=== PATIENT | female | born 1945 | race Caucasian/White ===

== ENCOUNTER → 2018-09-08 12:57 | Outpatient (CLI) | payer OTHER, SELFPAY | PROVIDERS: PCP Nurse Practitioner Family; Visit Provider Nurse Practitioner Family | DX: M81.0 Age-related osteoporosis without current pathological fracture (principal); Z78.0 Asymptomatic menopausal state; E07.9 Disorder of thyroid, unspecified; Z90.722 Acquired absence of ovaries, bilateral; Z82.62 Family history of osteoporosis | CPT/HCPCS: 77080 ==

== ENCOUNTER → 2018-10-29 08:03 | Outpatient (CLI) | payer OTHER, SELFPAY ==
[2018-10-29 09:25] LABS: BUN Creatinine Ratio 21.3 (6-22); Blood Urea Nitrogen 17 mg/dL (7-17); Calcium 9.3 mg/dL (8.4-10.2); Carbon Dioxide 32 mmol/L (22-32); Chloride 104 mmol/L (98-107); Estimated Glomerular Filt Rate > 60.0 mL/min (>60); Glucose 104 mg/dL (80-110); HEMOLYSIS < 15 (0-50); Potassium 4.7 mmol/L (3.4-5.1); Sodium 141 mmol/L (137-145)
== END ==
PROVIDERS: PCP Nurse Practitioner Family; Visit Provider Podiatrist
DX: Z01.818 Encounter for other preprocedural examination (principal); Z01.812 Encounter for preprocedural laboratory examination
CPT/HCPCS: 36415; 80048; 93005

== ENCOUNTER 2018-11-12 12:06 | Day surgery (SDC) | payer OTHER, SELFPAY ==
[2018-10-29 10:52] VITALS: BMI 23.8
[2018-11-12] VITALS (7 sets, daily range): BP systolic 144–155; BP diastolic 67–74; PULSE 52–61; RESP 8–18; TEMP 36.2–36.7; O2SAT 94–98; BMI 23.2
[2018-11-12] MEDS: CEFAZOLIN 2 GM/100 ML FROZ.PIGGY IV (14:10)
--- NOTE | 2018-11-12 14:16 | SUR.OPER ---
Paper copy of History & Physical from office in patient's chart. Surgeon confirmed no change since visit on 11/03/18 and will write interval note as such.
--- NOTE | 2018-11-12 14:17 | SUR.OPER ---
Supine on padded OR bed, head on pillow, arms secured on padded arm boards at <90 degrees abduction, legs uncrossed, safety belt at thigh, tape over blanket over lower legs.
[2018-11-12] MEDS: LIDOCAINE 2% W/EPI INJ 20 ML INJ (14:25)
[2018-11-12] MEDS: LIDOCAINE 2% INJ SDV 5 ML INJ (14:26)
[2018-11-12] MEDS: BUPIVACAINE 0.5% (PF) VIAL 30 ML INJ (14:27)
--- NOTE | 2018-11-12 15:18 | P.OP_ITS ---
Operative Date/Time/Diagnoses Date of procedure: 11/12/18 Time of procedure: 15:12 Pre-op diagnosis: Painful hallux ridgidus, right foot Post-op diagnosis: same Procedure & Clinicians Procedure: 1st MTPJ implant arthroplasty with silicone flexible implant and titanium grommets, Right foot Same procedure as scheduled: Yes Indications: Painful end-stage arthritis, hallux ridgidus, right foot Surgeon: Amol Wilkinson Click Yes if Unassisted: Yes Anesthesia Type: General and Local Operative Notes Closure Type: primary Specimen(s): none sent Prosthetic devices, grafts, tissues, transplants, or devices: Integra Flexible Great Toe (FGT) hinged silicone implant with titanium grommets Estimated Blood Loss (mL): 5 Blood products transfused: none Tourniquet time (min): 0 Procedure in detail: Indications: This patient has been dealing with painful and-stage arthritis involving her right foot. She has elected to proceed with 1st MTP joint implant arthroplasty. Operation: Patient was taken from the day surgery area back to the OR via gurney, and placed on the OR table in the supine position. She had received IV antibiotic prophylaxis. General anesthesia was induced by the anesthesiologist followed by local anesthetic blockade of the foot was 50 50 lidocaine. A calf tourniquet was applied, but not utilized throughout the case. The right foot was then prepped and draped in the usual sterile fashion from toes to knee. Procedure: 1St MTP joint implant arthroplasty with silicone flexible implant and titanium grommets, right foot attention was directed toward the dorsum of the right foot. A longitudinal in cision measuring 7 cm in length was placed over the 1st MTP joint, just medial to the EHL tendon. Sharp and blunt dissection were utilized through the subcutaneous tissue layer, taking care to retract all vital structures and cauterized as necessary for adequate hemostasis. Proliferative the bony exostosis was removed off the dorsal surface of the 1st met head and proximal phalanx base. Utilizing the included Integra instrumentation, osteotomy guide was inserted into the top of the joint and bone cuts began at the distal 1st metatarsal and proximal base of the hallux. The guide was removed, the bone cuts completed protecting the plantar structures. The adjacent bone canals at the distal 1st metatarsal and proximal phalanx base were then completed per protocol, using the small broach. The trial Sizer was placed and a size 20 implants looked to be an excellent fit. The wound was irrigated with copious antibiotic solution. A size 20 implant was opened. Titanium grommets were colby holley followed by the implantation of the silicone implant. The joint was put through range of motion in the implant found to rest nicely with no significant pistoning. Good resection allowed for adequate range of motion. Another antibiotic irrigation was followed by layered closure of the capsule, subcu, and skin with 3 0 Vicryl, 4 Vicryl respectively. Steri-Strips were placed, a postop injection 0.5% Marcaine given and then a light gauze compression bandage applied. She will be allowed full weight-bearing on the foot protected in a postop shoe. Will be seen for 1st postop visit next week in the [place] office. Condition: stable Disposition: PACU Plan for aftercare: Home with sister. FU in [place] office next week.
--- NOTE | 2018-11-12 15:34 | PM.PREOP ---
Pre-operative Note Interval Note History & Physical reviewed/Exam performed by Physician: Yes Changes to H&P: No
== END 2018-11-12 15:45 | disposition home or self-care (01) ==
LOC: OR 12:09
PROVIDERS: PCP Nurse Practitioner Family; Visit Provider Podiatrist
PROC: (CPT 26535; principal; 2018-11-12 13:00)
DX: M20.21 Hallux rigidus, right foot (principal); M25.571 Pain in right ankle and joints of right foot; M77.9 Enthesopathy, unspecified; I10 Essential (primary) hypertension; R26.2 Difficulty in walking, not elsewhere classified
CPT/HCPCS: 28291; J0690; J1100; J2405; J2704; J3010

== ENCOUNTER 2019-07-18 12:00 | Day surgery (SDC) | payer OTHER, SELFPAY ==
--- NOTE | 2019-07-18 08:09 | PM.OP.ENDO ---
Operative Date/Time/Diagnoses Date of procedure: 07/18/19 Time of procedure: 13:56 Pre-op diagnosis: 1. Fecal occult blood test positive 2. Screening for colon cancer Post-op diagnosis: other ( 1. Normal colonoscopy, 2. AVM, cecum, 3. Diverticulosis, sigmoid, minor) Procedure & Clinicians Study performed: Colonoscopy Same procedure as scheduled: Yes Indications: 1. Fecal occult blood test positive 2. Screening for colon cancer Surgeon: Bessy Bruce Procedure Notes SCOAP/Timeout: 1:56 p.m. Procedure in detail: ENDOSCOPIST: Bessy Bruce MD Sedation RN: Antonio Esqueda RN Sedation start time: 1:58 p.m. Sedation end time: 2:19 p.m. PROCEDURE: Colonoscopy INDICATIONS: 1. Fecal occult blood test positive 2. Screening for colon cancer MEDICATION: Levsin 0.125 mg sublingual, incremental doses of Versed and fentanyl until appropriate level sedation achieved. ASA CLASS: 2 CECAL WITHDRAWAL TIME: 9 minutes COMPLICATIONS: None. EXTENT OF PROCEDURE: Cecum. QUALITY OF PREP: Good with portions of liquid stool. PROCEDURE: Prior to insertion of the colonoscope, a digital rectal examination was accomplished with circumferential palpation of the distal rectal mucosa without significant findings being noted. The high-definition colonoscope was passed into the rectum in the usual fashion and advanced over to the cecum without difficulty. The ileocecal valve, appendiceal stoma, and medial wall all could be inspected and a small AVM was seen, otherwise, no abnormalities were appreciated. ASCENDING COLON: As the colonoscope was withdrawn, care was taken to expose and inspect the haustral folds and no abnormalities were seen. HEPATIC FLEXURE: Normal no polyps, diverticula or other abnormalities. TRANSVERSE COLON: Normal no polyps, diverticula or other abnormalities. DESCENDING COLON: Normal no polyps, diverticula or other abnormalities. SIGMOID COLON: Minor diverticulosis, otherwise, normal, no polyps, or other abnormalities. RECTUM: Normal. J maneuver was produced. There was no significant perianal disease. The J maneuver was broken. The remainder of the rectum was inspected and there was no external hemorrhoid disease. The scope was withdrawn. IMPRESSION: 1. Normal colonoscopy 2. Diverticulosis, sigmoid, minor 3. AVM, cecum, likely source of positive FIT test PLAN: 1. May consider repeat colonoscopy in 10 years if life expectancy greater than 10 years. Alternatively, can discontinue colon cancer screenings at age 82. The possibility of a missed lesion including a malignancy has been discussed with the patient previously. Potential alarm symptoms have been discussed and should be reported immediately. Scope withdrawal time: 9 Sedation minutes: 21 Findings: other findings Specimen(s): none sent Complications: none Impression: As above. Post-procedure Recommendations: Colonscopy in 10 years Follow up: as needed Disposition: PACU
--- NOTE | 2019-07-18 08:11 | PM.HP.1 ---
History of Present Illness History of Present Illness Date Patient Seen: 07/18/19 Time Patient Seen: 13:54 Chief complaint: [id number] Narrative: 74 Years Old Female comes in today for consideration of a diagnostic colonoscopy. FIT positive on 04/14/19. Last colonoscopy on 11/01/2003, normal. There have been no lower GI symptoms suggesting disease such as change in bowel habits, bleeding, abdominal pain or anemia. There's been no family history of colon cancer or colon polyps. Overall health issues have been stable, including no major cardiac events for at least 6 weeks. Current Medications (verified): 1) Cranberry Extract 200 Mg Oral Capsule (Cranberry (Vacc Oxycoccus)) .... use as directed 2) Atenolol 50 Mg Oral Tablet (Atenolol) .... Take 1 tablet once a day for blood pressure control. 3) Levothyroxine Sodium 50 Mcg Oral Tablet (Levothyroxine Sodium) .... Take 1/2 tablet by mouth once a day for thyroid replacement. 4) Acyclovir 400 Mg Oral Tablet (Acyclovir) .... take 2 tablets at onset of symptoms then one tablet three times daily as needed for herpes outbreak 5) Vitamin D 2000 Unit Oral Capsule (Cholecalciferol) .... Take one by mouth every day 6) Vitamin B-12 1000 Mcg Oral Tablet (Cyanocobalamin) .... Take one by mouth every day Allergies (verified): 1) Sulfa (Critical) 2) Lisinopril (Lisinopril) (Critical) 3) Losartan Potassium (Losartan Potassium) (Critical) 4) Vicodin (Moderate) 5) Hydrochlorothiazide (Moderate) 6) Metoprolol Succinate (Mild) Past Medical History: Hyperlipidemia; 2017 Osteoporosis; 2014 IBS Murmur Rosacea, Seborrhea, and Perioral dermatitis Chronic Pain, affecting the neck, shoulders, and low back Hypertension Hypothyroidism Prediabetes Herpes labialis Past Surgical History: Right foot, podiatry; 10/2018 Bilateral Tubal Ligation: 1974 Procedures:Colonoscopy ( 11/02 normal ) Total Hysterec with BSO (1988) Bilateral carpal tunnel surgery(1980) Fallopian tube cyst removal(1980) Family History: Reviewed history from 01/10/2014 and no changes required: Father: age 78- Heart Disease, Hypertension Mother: age 92. Positive for Cerebrovascular Accident ( mother -- at 75 ). 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 Household Members: son Education: 16 years LIfe Changes (2013): Retired 05/31/13, mother (06/19/13) Patient History Medical History (Updated 11/01/18 @ 07:45 by Cindi Hidalgo RN) Angioedema (Acute 04/15/17) Chronic foot pain (Acute) Chronic neck and back pain (Acute) Dysuria-frequency syndrome (Acute) (Acute) HLD (hyperlipidemia) (Acute) HTN (hypertension) (Acute) Hypothyroid (Acute) IBS (irritable bowel syndrome) (Acute) Murmur (Acute) Osteoporosis (Acute) Pre-diabetes (Acute) Rosacea (Acute) Surgical History (Updated 11/01/18 @ 07:45 by Cindi Hidalgo RN) H/O total hysterectomy with bilateral salpingo-oophorectomy (BSO) (Acute ~1988) History of bilateral tubal ligation (Acute ~1974) History of colonoscopy (Acute ~10/2003) Meds Home Medications and Allergies Home Medications Medication Instructions Recorded Confirmed Type acyclovir 2 tab PO PRN PRN #0 04/13/17 07/18/19 History levothyroxine [Synthroid] 12.5 mcg PO QAM #0 04/13/17 07/18/19 History atenolol 50 mg PO DAILY 11/01/18 07/18/19 History epinephrine [EpiPen 2-Damon] 0.3 mg SQ X1 PRN 11/01/18 11/01/18 History Allergies Allergy/AdvReac Type Severity Reaction Status Date / Time lisinopril Allergy Severe Angioedema Verified 11/01/18 07:37 losartan Allergy Severe angioedema Verified 11/12/18 12:52 Sulfa (Sulfonamide Allergy Severe Itchy Verified 11/12/18 12:52 Antibiotics) [SULFA (SULFONAMIDE ANTIBIOTICS)] hydrochlorothiazide Allergy Intermediate angeoedema Verified 11/12/18 12:52 metoprolol AdvReac Intermediate Dizziness Verified 11/12/18 12:52 Review of Systems Review of Systems Narrative: General: Denies fever, chills, sweats, loss of appetite, fatigue, weakness, ill feeling, weight change, waking-up tired, fatigued/sleepy during day, snoring, and problem getting to or staying asleep. Eyes: Denies blurring, double vision, irritation/itching, redness, discharge, vision loss, eye pain, and light intolerance. ENT: Denies earache, ear discharge, ringing ears, decreased hearing, nasal congestion, nasal discharge, postnasal drip, nosebleeds, sore throat, hoarseness, itching nose/eyes, and sneezing. CV: Denies chest discomfort, palpitations, lightheadedness, passing out, SOB with exertion, SOB lying flat, PND-sudden nocturnal shortness of breath, and ankle edema. Resp: Denies cough, wheeze, SOB at rest, sputum, coughing up blood, and painful breathing. GI: Denies nausea, vomiting, diarrhea, constipation, change in bowel habits, abdominal pain, dark black stools, blood in stools, gas/bloating, indigestion/heartburn, reflux, loss of appetite, swallowing problems, painful swallowing, and jaundice. : Denies painful urination, blood in urine, frequency, nocturia, incontinence, urgency, hesitancy, vaginal discharge, amenorrhea, abnormally heavy periods, abnormal vaginal bleeding, pelvic pain, painful intercourse, less interested in sex, and genital sores. MS: Denies neck pain, upper back pain, lower back pain, joint pain, joint swelling, joint stiffness, muscle cramps, muscle weakness, pain radiating down leg, restless legs, and leg pain with exertion. Derm: Complains of itching; denies rash, dryness, skin lesions, changing lesions, and non-healing sores. Neuro: Denies weakness of a limb, numbness/tingling, seizure, tremor, dizziness, transient blindness, balance problems, frequent falls, frequent headaches, severe headaches, difficulty speaking, difficulty swallowing, clumsiness, confusion, and memory loss. Psych: Denies sadness/hopelessness, feeling overwhelmed, lack of roxanne/pleasure, anxiety/excessive worry, excessive sleep, inadequate sleep, change in appetite, poor concentration, suicidal ideation, hallucinations, paranoia, and phobia. Endo: Denies cold intolerance, heat intolerance, excessive thirst, excessive hunger, excessive urination, and unintentional weight change. Heme: Denies abnormal bruising, bleeding problems, bleeding gums, frequent nosebleeds, and enlarged lymph nodes. Allergy: Denies hives, allergic rash, allergy symptoms, seasonal allergies, food intolerance, animal intolerance, and frequent infections. Breast: Denies left breast lump, right breast lump, breast pain, breast tenderness, erythema, nipple discharge, bloody nipple discharge, abnormal mammogram, breast enlargement, and currently . Exam Narrative Exam Narrative: General: Alert and oriented, appearing stated age and in no acute distress. Head: Head normocephalic/atraumatic. Neck: Neck soft and supple, no lymphadenopathy. Lungs: Clear to auscultation bilaterally, no wheezes, rhonchi or rales. Heart: Normal S1 and S2 with regular rate and rhythm, no audible murmurs, rubs or gallops. Abdomen: Soft, non-tender, non-distended, no organomegaly. Possitive bowel sounds. Psych: Alert and oriented x 3. Assessment & Plan Assessment & Plan narrative: Problem # 1: Fecal occult blood test positive 1. Colonoscopy The nature and character of the procedure as well as anticipated results were discussed. The possibility of not completing the procedure was also discussed. Possible complications including aspiration pneumonia, bleeding, perforation and reaction to medications either for sedation or preparation and missed lesions were discussed. Questions were answered and proceeding to the colonoscopy was elected. Informed consent signed. I sincerely appreciate the referral allowing me to participate in this patient's care. Please contact me with any questions or concerns. Problem # 2: Screening for colon cancer 1. Please see #1
[2019-07-18 12:28] VITALS: BP 105/85; PULSE 59; RESP 16; TEMP 36.4; O2SAT 100; BMI 22.5
[2019-07-18] MEDS: HYOSCYAMINE 0.125 MG TABLET PO (12:40)
[2019-07-18] MEDS: SODIUM CHLORIDE 0.9% 1,000 ML 200 ML IV (12:40)
[2019-07-18] MEDS: fentaNYL 250 MCG/5 ML INJ IV (13:54)
[2019-07-18] MEDS: MIDAZOLAM 5 MG/ML VIAL 1 MG IV (13:55)
[2019-07-18 14:26] VITALS: BP 141/70; PULSE 74; RESP 15; TEMP 36.6; O2SAT 98
[2019-07-18 14:31] VITALS: BP 148/73; PULSE 76; RESP 18; O2SAT 98
[2019-07-18 14:35] VITALS: BP 160/74; PULSE 67; RESP 12; TEMP 36.6; O2SAT 99
[2019-07-18 14:39] VITALS: BP 159/77; PULSE 62; RESP 14; O2SAT 99
[2019-07-18 14:47] VITALS: BP 162/75; PULSE 65; RESP 12; O2SAT 98
--- NOTE | 2019-07-18 15:21 | SUR.PHASEII ---
1555 Brought to Phase II by Wendie, states that patient is stable and ready to go. Pt alert and oriented, call light within reach, states she'd like to go. IV dc'd, clothes given.
== END 2019-07-18 15:07 | disposition home or self-care (01) ==
PROVIDERS: PCP Nurse Practitioner Family; Referring Provider Nurse Practitioner Family; Visit Provider Student in an Organized Health Care Education/Training Program
PROC: 0DJD8ZZ Inspection of Lower Intestinal Tract, Via Natural or Artificial Opening Endoscopic (ICD-10-PCS; CPT 45378; principal; 2019-07-18 14:00)
DX: R19.5 Other fecal abnormalities (principal); K57.30 Diverticulosis of large intestine without perforation or abscess without bleeding; Q27.33 Arteriovenous malformation of digestive system vessel
CPT/HCPCS: 45378; J2250; J3010

== ENCOUNTER → 2020-04-27 14:56 | Outpatient (CLI) | payer OTHER, SELFPAY ==
--- NOTE | 2020-04-27 14:58 | DI.ECHO.S_ITS ---
[facility] +---------+ [facility] +---------+ : : [address] : : : : [id number] : : : : Phone: [phone] Echocardiogram Report + + :Name: PROSPER SEE Study Date: 04/27/2020 Height: 60 in : :[facility] Weight: 121 lb : : Gender: Female BSA: 1.5 m2 : :: 1945 Age: 75 yrs BP: 148/76 mmHg: :Reason For Study: Murmur : :Ordering Physician: : :Mine Baird Performed By: Manjula Sprague : + + Interpretation Summary The patient was in sinus bradycardia with heart rates between 44-57 bpm during the exam. The patient had frequent PVCs during the exam. Intermittent bigeminy rhythm. The left ventricle is normal in size. The ejection fraction is estimated to be 60-65%. The right ventricle is normal in size and function. There appears to be prolapse of P2 scallop of posterior mitral leaflet. There is mild to moderate mitral regurgitation. The mitral regurgitant jet is eccentrically directed. There is mild tricuspid regurgitation. The right ventricular systolic pressure is estimated to be at least 37 mmHg based on an estimated right atrial pressure of 3 mm Hg. Procedure: A two-dimensional transthoracic echocardiogram with color flow and Doppler was performed. The study quality was technically adequate. There is no prior echocardiogram noted for this patient. The patient was in sinus bradycardia with heart rates between 44-57 bpm during the exam. Intermittent bigeminy rhythm. The patient had frequent PVCs during the exam. Left Ventricle: The left ventricle is normal in size. Left ventricular wall thickness is mildly increased. There is no thrombus. The ejection fraction is estimated to be 60-65%. There are no focal wall motion abnormalities. MV E/A: 0.78 Med Peak E' Jose: 4.9 cm/sec E/E' med: 16.2. Right Ventricle: The right ventricle is normal in size and function. Atria: The left atrium is moderately dilated. Borderline right atrial enlargement. There is no Doppler evidence for an interatrial shunt. Mitral Valve: There is prolapse of the posterior mitral valve leaflet(s). There appears to be prolapse of P2 scallop of posterior mitral leaflet. There is mild to moderate mitral regurgitation. The mitral regurgitant jet is eccentrically directed. Aortic Valve: The aortic valve is normal in structure and function. No aortic regurgitation is present. Tricuspid Valve: The tricuspid valve is normal. There is mild tricuspid regurgitation. The right ventricular systolic pressure is estimated to be at least 37 mmHg based on an estimated right atrial pressure of 3 mm Hg. Pulmonic Valve: The pulmonic valve is not well seen, but is grossly normal. There is mild pulmonic regurgitation. Great Vessels: The aortic root is normal size. The ascending aorta is at the upper limits of normal in size. The aortic arch is normal in size. The IVC is of normal diameter and collapses greater than 50% with a sniff. This suggests a low right atrial pressure of 3 mm Hg. Pericardium/ Pleura There is no pericardial effusion. There is no pleural effusion. MMode/2D Measurements & Calculations LVIDd: 4.0 cm LVOT diam: 1.8 cm LVIDs: 2.1 cm Ao root diam: 2.9 cm FS: 46.3 % asc Aorta Diam: 3.4 cm EPSS: 0.15 cm Ao Arch Diam (Prox Trans): 2.3 cm IVSd: 1.1 cm LVPWd: 0.98 cm LV saravia. diameter/BSA (cm/m^2): 2.6 LV sys. diameter/BSA (cm/m^2): 1.4 LA A2 area: 20.7 cm2 RA long axis: 4.7 cm LA A4 area: 21.4 cm2 RA area: 15.2 cm2 LA length (vol): 5.6 cm RA vol: 41.6 ml LA vol: 67.5 ml RA : 27.6 ml/m2 LA vol index: 44.8 ml/m2 IVC diam: 1.5 cm RVD1 (basal): 3.3 cm RVD2 (mid): 2.6 cm TAPSE: 2.9 cm Doppler Measurements & Calculations Ao V2 max: 164.7 cm/sec LVOT Max Jose: 103.4 cm/sec Ao V2 mean: 113.4 cm/sec LV V1 max P.3 mmHg Ao max P.8 mmHg LV V1 VTI: 26.4 cm Ao mean P.7 mmHg GLENNY(I,D): 1.6 cm2 Ao V2 VTI: 40.9 cm GLENNY(V,D): 1.5 cm2 sev ratio: 0.65 GLENNY indexed to BSA (cm^2/m^2): 1.0 MV E max jose: 80.1 cm/sec TR max jose: 289.6 cm/sec MV A max jose: 103.2 cm/sec TR max P.5 mmHg MV E/A: 0.78 PA V2 max: 82.5 cm/sec Med Peak E' Jose: 4.9 cm/sec PA V2 mean: 59.4 cm/sec E/E' med: 16.2 PA mean P.6 mmHg Lat Peak E' Jose: 6.4 cm/sec PA Accel Time: 0.12 sec E/E' lat: 12.5 E/e' average: 14.4 MV dec time: 0.28 sec MV P1/2t: 82.7 msec MV P1/2t max jose: 80.6 cm/sec SV(LVOT): 64.5 ml MVA(P1/2t): 2.7 cm2 Reading Physician:05:26 PM
== END ==
PROVIDERS: PCP Family Medicine; Referring Provider Family Medicine; Visit Provider Family Medicine
DX: I08.1 Rheumatic disorders of both mitral and tricuspid valves (principal); R01.1 Cardiac murmur, unspecified; I49.3 Ventricular premature depolarization
CPT/HCPCS: 93306

== ENCOUNTER → 2020-05-26 14:19 | Outpatient (CLI) | payer OTHER, SELFPAY ==
--- NOTE | 2020-05-26 14:21 | DI.MG.S_ITS ---
BILATERAL DIGITAL SCREENING MAMMOGRAM 3D/2D WITH CAD: 05/26/2020 CLINICAL: Routine screening. Family history of breast cancer. Comparison is made to exams dated: 08/03/2017 mammogram, 07/14/2016 mammogram, and 02/19/2015 mammogram - [facility]. The tissue of both breasts is heterogeneously dense. This may lower the sensitivity of mammography. Current study was also evaluated with a Computer Aided Detection (CAD) system. No significant masses, calcifications, or other findings are seen in either breast. There has been no significant interval change. IMPRESSION: NEGATIVE There is no mammographic evidence of malignancy. A 1 year screening mammogram is recommended. This exam was interpreted at Station ID: [id number]. NOTE: For mammograms, a report in lay terms will be sent to the patient. Approximately 15% of breast malignancies will not be visualized mammographically. In the management of a palpable breast mass, a negative mammogram must not discourage biopsy of a clinically suspicious lesion. Electronically Signed By: Amandeep parada/danelle:05/28/2020 14:23:03 letter sent: Normal Exam ACR BI-RADS Category 1: Negative [id number]
== END ==
PROVIDERS: PCP Family Medicine; Referring Provider Family Medicine; Visit Provider Family Medicine
DX: Z12.31 Encounter for screening mammogram for malignant neoplasm of breast (principal); Z80.3 Family history of malignant neoplasm of breast
CPT/HCPCS: 77063; 77067

== ENCOUNTER → 2020-06-28 13:23 | Outpatient (CLI) | payer OTHER, SELFPAY ==
--- NOTE | 2020-07-21 11:36 | PM.CARDMON.1 ---
Awning Installer Report Referral & Results Date Patient Seen: 06/28/20 Requesting provider: Mine Baird Indication: Bradycardia Duration of monitoring (days): 7 Diary information: There are no patient diary entries or patient triggered events to review Data: Minimum heart rate identified was 46 beats per minute at 04:54 on 07/04/2020 Maximum sinus heart rate was 117 beats per minute at 09:27 on 07/03/2020 Maximum overall heart rate was 167 beats per minute at 09:41 on 07/04/2020 during a 4 beat run of SVT Less than 1% of identified beats were supraventricular ectopic in origin Approximately 2.5% of identified beats were ventricular ectopic in origin which would rate these as occasional PVCs including a 1 minutes 12nd run of ventricular bigeminy There were 7 runs of SVT the fastest being a 4 beat run listed above and the longest lasting 12.6 seconds at a rate of 119 beats per minute which would suggest more atrial tachycardia than true SVT Overall patient was not overly bradycardic with ultimate minimum heart rate as above Impression: No notable bradycardia noticed on this study Patient with occasional PVCs including minimal runs of ventricular bigeminy Patient with rare short duration runs of SVT/atrial tachycardia Clinical correlation suggested
== END ==
PROVIDERS: PCP Family Medicine; Referring Provider Family Medicine; Visit Provider Family Medicine
DX: R00.1 Bradycardia, unspecified (principal)
CPT/HCPCS: 93242; 93244

== ENCOUNTER → 2020-07-12 13:33 | Outpatient (CLI) | payer OTHER, SELFPAY ==
--- NOTE | 2020-07-12 13:34 | DI.RAD.S_ITS ---
PROCEDURE: XR DEXA AXIAL SKELETON INDICATIONS: Age-related osteoporosis COMPARISON: [facility], CR, XR DEXA AXIAL SKELETON, 09/08/2018, 13:18. FINDINGS: This blank DEXA report has been sent in error by the PACS system. The correct and complete report will be forthcoming in 1-2 days. Thank you for your patience and understanding. Dictated by: Ginger Maldonado MD, PhD on 07/12/2020 at 17:21 Approved by: Ginger Maldonado MD, PhD on 07/12/2020 at 17:21
== END ==
PROVIDERS: PCP Family Medicine; Referring Provider Family Medicine; Visit Provider Family Medicine
DX: M81.0 Age-related osteoporosis without current pathological fracture (principal); Z78.0 Asymptomatic menopausal state; E07.9 Disorder of thyroid, unspecified; Z90.722 Acquired absence of ovaries, bilateral
CPT/HCPCS: 77080

== ENCOUNTER 2020-11-06 06:15 | Emergency (ER) | payer OTHER, SELFPAY ==
[2020-11-06] VITALS (10 sets, daily range): BP systolic 110–187; BP diastolic 56–96; PULSE 60–75; RESP 12–26; TEMP 37.1; O2SAT 93–98; BMI 23.2
--- NOTE | 2020-11-06 06:26 | ED_ITS ---
HPI - Abdominal Pain <Asha Garcia, DO - Last Filed: 11/07/20 00:19> General Chief Complaint: Abdominal Pain Stated Complaint: N/V Time Seen by Provider: 11/06/20 06:17 Source: patient and EMS Mode of arrival: EMS Limitations: no limitations History of Present Illness HPI narrative: This is a 75-year-old female comes emergency department with complaint of abdominal pain that started last night. Patient states she has a history of irritable bowel syndrome. She states she usually does not episodes this severe. She states she had chills and sweats intermittently overnight. She had continuous abdominal pain but denies any radiation to her back. She denies any chest pain or pressure. She denies any shortness of breath. She states she had frequent nausea and vomiting overnight. She denies any hematemesis. Patient states she had a bowel movement yesterday which she describes soft. She denies any melena or hematochezia. She denies any dysuria, urgency frequency or difficulty with urination. She states that her abdomen feels distended and bloated. She states that this is typical in terms of having abdominal pain, cramping and the bloating but the nausea and vomiting is not as common. Patient states she does have history of hypertension and takes metoprolol and hydrochlorothiazide as well as levothyroxine and history dyslipidemia. Patient's that she has had a bilateral hysterectomy with BSO. Carpal tunnel surgery and prior foot surgery. Patient EMR notes that she did have a colonoscopy 07/21/2019 which showed AVM at cecum and diverticulosis. With otherwise normal colonoscopy. Patient received Zofran from EMS states she took activated charcoal at home. Related Data Home Medications Medication Instructions Recorded Confirmed acyclovir 2 tab PO PRN PRN #0 04/13/17 07/18/19 levothyroxine [Synthroid] 12.5 mcg PO QAM #0 04/13/17 07/18/19 atenolol 50 mg PO DAILY 11/01/18 07/18/19 epinephrine [EpiPen 2-Damon] 0.3 mg SQ X1 PRN 11/01/18 11/01/18 Previous Rx's Medication Instructions Recorded ondansetron 4 mg PO Q6H PRN #14 tab 11/06/20 Allergies Allergy/AdvReac Type Severity Reaction Status Date / Time lisinopril Allergy Severe Angioedema Verified 11/01/18 07:37 losartan Allergy Severe angioedema Verified 11/12/18 12:52 Sulfa (Sulfonamide Allergy Severe Itchy Verified 11/12/18 12:52 Antibiotics) [SULFA (SULFONAMIDE ANTIBIOTICS)] hydrochlorothiazide Allergy Intermediate angeoedema Verified 11/12/18 12:52 metoprolol AdvReac Intermediate Dizziness Verified 11/12/18 12:52 Review of Systems <Asha Garcia DO - Last Filed: 11/07/20 00:19> Review of Systems ROS Unobtainable: All systems reviewed & are unremarkable except as noted in HPI and below Patient History <Asha Garcia DO - Last Filed: 11/07/20 00:19> Medical History Angioedema (04/15/17) Chronic foot pain Chronic neck and back pain Dysuria-frequency syndrome HLD (hyperlipidemia) HTN (hypertension) Hypothyroid IBS (irritable bowel syndrome) Murmur Osteoporosis Pre-diabetes Rosacea Surgical History H/O total hysterectomy with bilateral salpingo-oophorectomy (BSO) (~1988) History of bilateral tubal ligation (~1974) History of colonoscopy (~10/2003) Social History household members: children Smoking Status: Never smoker alcohol intake: current Smoking Status: Never smoker alcohol intake frequency: a few times a month Substance Use Type: does not use Exam <Asha Garcia DO - Last Filed: 11/07/20 00:19> Narrative Exam Narrative: GENERAL: Alert and oriented x three, elderly female in moderate distress. Patient does appear uncomfortable. HEENT: Head normocephalic, atraumatic, EOMI, pupils reactive, face symmetric, moist mucous membranes NECK: Supple, full range of motion CARDIOVASCULAR: Regular rate and rhythm without murmurs, rubs or gallops. RESPIRATORY: Breath sounds equal bilaterally, no wheezes rales or rhonchi. ABDOMEN: Soft, nontender on exam. Hyperactive bowel sounds all 4 quadrants. No guarding or rebound, rigidity, no mass, nondistended. : No CVA tenderness EXTREMITIES: Normal range of motion, no clubbing or edema. Neurovascularly intact NEUROLOGICAL: Cranial nerves II through XII grossly intact. Moving all extremities SKIN: Warm, dry, no petechiae, no rashes or lesions. Initial Vital Signs Initial Vital Signs: Vital Signs Temperature 98.7 F 11/06/20 06:25 Pulse Rate 75 11/06/20 06:25 Respiratory Rate 19 11/06/20 06:25 Blood Pressure 187/81 H 11/06/20 06:25 Pulse Oximetry 98 11/06/20 06:25 <Kendall Reynoso DO - Last Filed: 11/06/20 09:34> Initial Vital Signs Initial Vital Signs: Vital Signs Temperature 98.7 F 11/06/20 06:25 Pulse Rate 75 11/06/20 06:25 Respiratory Rate 19 11/06/20 06:25 Blood Pressure 187/81 H 11/06/20 06:25 Pulse Oximetry 98 11/06/20 06:25 Course <Asha Garcia, DO - Last Filed: 11/07/20 00:19> Orders Ordered: Discontinued Medications Sodium Chloride (Normal Saline 0.9%) 1,000 mls @ 150 mls/hr IV CONT KAIT Last Infusion: 11/06/20 09:27 Dose: 0 mls/hr Documented by: JUAN A.JSHAFF Admin: 11/06/20 06:43 Dose: 150 mls/hr Documented by: JOSEPH Morphine Sulfate (Morphine 4 Mg/Ml Inj) 4 mg IV NOW ONE Stop: 11/06/20 06:26 Last Admin: 11/06/20 06:41 Dose: 4 mg Documented by: JOSEPH Ondansetron HCl (Ondansetron 4 Mg/2 Ml Inj) 4 mg IV Q4HR [facility] Vital Signs Vital signs: Vital Signs - 8 hr 11/06/20 06:25 11/06/20 06:45 11/06/20 07:00 Temperature 98.7 F Pulse Rate 75 67 60 Respiratory Rate 19 21 15 Blood Pressure 187/81 H 110/56 L Pulse Oximetry 98 96 96 <Kendall Reynoso DO - Last Filed: 11/06/20 09:34> Orders Ordered: Discontinued Medications Sodium Chloride (Normal Saline 0.9%) 1,000 mls @ 150 mls/hr IV CONT KAIT Last Infusion: 11/06/20 09:27 Dose: 0 mls/hr Documented by: [email or web address] Admin: 11/06/20 06:43 Dose: 150 mls/hr Documented by: JOSEPH Morphine Sulfate (Morphine 4 Mg/Ml Inj) 4 mg IV NOW ONE Stop: 11/06/20 06:26 Last Admin: 11/06/20 06:41 Dose: 4 mg Documented by: JOSEPH Ondansetron HCl (Ondansetron 4 Mg/2 Ml Inj) 4 mg IV Q4HR [facility] Vital Signs Vital signs: Vital Signs - 8 hr 11/06/20 06:25 11/06/20 06:45 11/06/20 07:00 Temperature 98.7 F Pulse Rate 75 67 60 Respiratory Rate 19 21 15 Blood Pressure 187/81 H 110/56 L Pulse Oximetry 98 96 96 MDM - Abdominal Pain <Asha Garcia DO - Last Filed: 11/07/20 00:19> Lab Data Result diagrams: 11/06/20 06:25 11/06/20 06:25 Labs: Lab Results 11/06/20 11/06/20 11/06/20 Range/Units 06:25 06:25 06:25 WBC 16.8 H (4.5-11.0) X10^3/uL RBC 5.37 H (4.0-5.2) X10^6/uL Hgb 17.3 H (12.0-16.0) g/dL Hct 51.1 H (36-46) % MCV 95.2 (80-100) fL MCH 32.2 (26-34) PG MCHC 33.8 (30-36) % RDW 12.8 (11.6-14.8) % Plt Count 256 (150-400) X10^3/uL Neut % (Auto) 92.5 H (50-75) % Lymph % (Auto) 3.2 L (25-40) % Walsh % (Auto) 3.8 (3-14) % Eos % (Auto) 0.1 L (2-4) % Baso % (Auto) 0.4 (0-2) % Neut # (Auto) 98838 H (0073-8141) /uL Lymph # (Auto) 500 L (9276-1709) /uL Walsh # (Auto) 600 (0-900) /uL Eos # (Auto) 0 (0-450) /uL Baso # (Auto) 100 (0-100) /uL Platelet Estimate Adequate on smear RBC Morphology Normal morphology Sodium 137 (137-145) mmol/L Potassium 4.3 (3.4-5.1) mmol/L Chloride 96 L (98-107) mmol/L Carbon Dioxide 29 (22-32) mmol/L BUN 18 H (7-17) mg/dL Creatinine 0.94 (0.52-1.04) mg/dL Estimated GFR 58.4 L (>60) mL/min BUN/Creatinine Ratio 19.1 (6-22) Glucose 176 H (80-110) mg/dL Calcium 11.1 H (8.4-10.2) mg/dL Total Bilirubin 1.1 (0.2-1.3) mg/dL AST 37 H (14-36) IU/L ALT 27 (<35) IU/L Alkaline Phosphatase 91 (38-126) U/L Total Creatine Kinase 47 (30-135) U/L CK-MB (CK-2) TNP CK-MB (CK-2) Rel Index TNP Troponin I < 0.012 (0.01-0.034) ng/mL Total Protein 8.9 H (6.3-8.2) g/dL Albumin 5.0 (3.5-5.0) g/dL Globulin 3.9 (1.7-4.1) g/dL Albumin/Globulin Ratio 1.3 (1.0-2.8) Lipase 61 (23-300) U/L Urine RBC (0-5/HPF) Urine WBC (0-5/HPF) Urine Bacteria (None) Hyaline Casts (None) Urine Mucus (Negative) Ur Culture Indicated? 11/06/20 Range/Units 07:41 WBC (4.5-11.0) X10^3/uL RBC (4.0-5.2) X10^6/uL Hgb (12.0-16.0) g/dL Hct (36-46) % MCV (80-100) fL MCH (26-34) PG MCHC (30-36) % RDW (11.6-14.8) % Plt Count (150-400) X10^3/uL Neut % (Auto) (50-75) % Lymph % (Auto) (25-40) % Walsh % (Auto) (3-14) % Eos % (Auto) (2-4) % Baso % (Auto) (0-2) % Neut # (Auto) (2814-5367) /uL Lymph # (Auto) (2901-6813) /uL Walsh # (Auto) (0-900) /uL Eos # (Auto) (0-450) /uL Baso # (Auto) (0-100) /uL Platelet Estimate RBC Morphology Sodium (137-145) mmol/L Potassium (3.4-5.1) mmol/L Chloride (98-107) mmol/L Carbon Dioxide (22-32) mmol/L BUN (7-17) mg/dL Creatinine (0.52-1.04) mg/dL Estimated GFR (>60) mL/min BUN/Creatinine Ratio (6-22) Glucose (80-110) mg/dL Calcium (8.4-10.2) mg/dL Total Bilirubin (0.2-1.3) mg/dL AST (14-36) IU/L ALT (<35) IU/L Alkaline Phosphatase (38-126) U/L Total Creatine Kinase (30-135) U/L CK-MB (CK-2) CK-MB (CK-2) Rel Index Troponin I (0.01-0.034) ng/mL Total Protein (6.3-8.2) g/dL Albumin (3.5-5.0) g/dL Globulin (1.7-4.1) g/dL Albumin/Globulin Ratio (1.0-2.8) Lipase (23-300) U/L Urine RBC 1-5/hpf (0-5/HPF) Urine WBC 0-1/hpf (0-5/HPF) Urine Bacteria Moderate (10-30) H (None) Hyaline Casts 30-100/lpf (None) Urine Mucus 1+ H (Negative) Ur Culture Indicated? Specimen cultured Point of care testing: Urine Dip Bedside Urine Glucose Negative Bedside Urine Bilirubin ++ 2 Bedside Urine Ketone ++ 40 Urine Specific [place] 1.025 Bedside Urine Occult Blood - Negative Bedside Urine pH 6.5 Bedside Urine Protein ++ 100 Bedside Urine Urobilinogen - Negative Bedside Urine Nitrite - Negative Bedside Urine Leukocytes - Negative Esterase ECG Data Attestation: I personally reviewed and interpreted this ECG as follows: Prior ECG tracings: available for review Interpretation: Sinus rhythm rate of 64 P are 132 QRS 72 [address] No ST elevation noted. Nonspecific T-wave change. Patient has prior EKG from 10/29/2018 which also shows sinus rhythm but does appear slightly different in V2 with inverted T-wave and flattening of the 3 before although not completely. MDM Narrative Medical decision making narrative: 75 year old female with acute on chronic abdominal pain went to significantly worse from her normal with persistent vomiting but normal bowel movement yesterday. Patient's labs are pending, her CBCs resulted with a leukocytosis. Patient's EKG also notes that she has some nonspecific changes from her prior with inverted T-wave in V2 and flattening in V3 for but no new lesions. Patient's pain does seem to be only in her abdomen and not in her chest but troponin was added with nonspecific changes. Patient signed out to Dr. Reynoso while awaiting labs. <Kendall Reynoso, DO - Last Filed: 11/06/20 09:34> Lab Data Attestation: I reviewed the patient's lab results. Labs: Lab Results 11/06/20 11/06/20 11/06/20 Range/Units 06:25 06:25 06:25 WBC 16.8 H (4.5-11.0) X10^3/uL RBC 5.37 H (4.0-5.2) X10^6/uL Hgb 17.3 H (12.0-16.0) g/dL Hct 51.1 H (36-46) % MCV 95.2 (80-100) fL MCH 32.2 (26-34) PG MCHC 33.8 (30-36) % RDW 12.8 (11.6-14.8) % Plt Count 256 (150-400) X10^3/uL Neut % (Auto) 92.5 H (50-75) % Lymph % (Auto) 3.2 L (25-40) % Walsh % (Auto) 3.8 (3-14) % Eos % (Auto) 0.1 L (2-4) % Baso % (Auto) 0.4 (0-2) % Neut # (Auto) 03992 H (9982-5883) /uL Lymph # (Auto) 500 L (0374-3926) /uL Walsh # (Auto) 600 (0-900) /uL Eos # (Auto) 0 (0-450) /uL Baso # (Auto) 100 (0-100) /uL Platelet Estimate Adequate on smear RBC Morphology Normal morphology Sodium 137 (137-145) mmol/L Potassium 4.3 (3.4-5.1) mmol/L Chloride 96 L (98-107) mmol/L Carbon Dioxide 29 (22-32) mmol/L BUN 18 H (7-17) mg/dL Creatinine 0.94 (0.52-1.04) mg/dL Estimated GFR 58.4 L (>60) mL/min BUN/Creatinine Ratio 19.1 (6-22) Glucose 176 H (80-110) mg/dL Calcium 11.1 H (8.4-10.2) mg/dL Total Bilirubin 1.1 (0.2-1.3) mg/dL AST 37 H (14-36) IU/L ALT 27 (<35) IU/L Alkaline Phosphatase 91 (38-126) U/L Total Creatine Kinase 47 (30-135) U/L CK-MB (CK-2) TNP CK-MB (CK-2) Rel Index TNP Troponin I < 0.012 (0.01-0.034) ng/mL Total Protein 8.9 H (6.3-8.2) g/dL Albumin 5.0 (3.5-5.0) g/dL Globulin 3.9 (1.7-4.1) g/dL Albumin/Globulin Ratio 1.3 (1.0-2.8) Lipase 61 (23-300) U/L Urine RBC (0-5/HPF) Urine WBC (0-5/HPF) Urine Bacteria (None) Hyaline Casts (None) Urine Mucus (Negative) Ur Culture Indicated? 11/06/20 Range/Units 07:41 WBC (4.5-11.0) X10^3/uL RBC (4.0-5.2) X10^6/uL Hgb (12.0-16.0) g/dL Hct (36-46) % MCV (80-100) fL MCH (26-34) PG MCHC (30-36) % RDW (11.6-14.8) % Plt Count (150-400) X10^3/uL Neut % (Auto) (50-75) % Lymph % (Auto) (25-40) % Walsh % (Auto) (3-14) % Eos % (Auto) (2-4) % Baso % (Auto) (0-2) % Neut # (Auto) (9501-0381) /uL Lymph # (Auto) (5204-7839) /uL Walsh # (Auto) (0-900) /uL Eos # (Auto) (0-450) /uL Baso # (Auto) (0-100) /uL Platelet Estimate RBC Morphology Sodium (137-145) mmol/L Potassium (3.4-5.1) mmol/L Chloride (98-107) mmol/L Carbon Dioxide (22-32) mmol/L BUN (7-17) mg/dL Creatinine (0.52-1.04) mg/dL Estimated GFR (>60) mL/min BUN/Creatinine Ratio (6-22) Glucose (80-110) mg/dL Calcium (8.4-10.2) mg/dL Total Bilirubin (0.2-1.3) mg/dL AST (14-36) IU/L ALT (<35) IU/L Alkaline Phosphatase (38-126) U/L Total Creatine Kinase (30-135) U/L CK-MB (CK-2) CK-MB (CK-2) Rel Index Troponin I (0.01-0.034) ng/mL Total Protein (6.3-8.2) g/dL Albumin (3.5-5.0) g/dL Globulin (1.7-4.1) g/dL Albumin/Globulin Ratio (1.0-2.8) Lipase (23-300) U/L Urine RBC 1-5/hpf (0-5/HPF) Urine WBC 0-1/hpf (0-5/HPF) Urine Bacteria Moderate (10-30) H (None) Hyaline Casts 30-100/lpf (None) Urine Mucus 1+ H (Negative) Ur Culture Indicated? Specimen cultured Point of care testing: Urine Dip Bedside Urine Glucose Negative Bedside Urine Bilirubin ++ 2 Bedside Urine Ketone ++ 40 Urine Specific [place] 1.025 Bedside Urine Occult Blood - Negative Bedside Urine pH 6.5 Bedside Urine Protein ++ 100 Bedside Urine Urobilinogen - Negative Bedside Urine Nitrite - Negative Bedside Urine Leukocytes - Negative Esterase Imaging Data CT scan - abdomen/pelvis: Radiologist's Impression: [address] [id number] Scan ReportSigned Patient: Aleida Angeles MMR#: [id number]: 7Acct:[id number]/Sex: 75 / FDate of Service: 11/06/20Loc: EDAccession Number: [id number] Procedure: CT abdomen pelvis w con Ordering Provider: Kendall Reynoso D.O. PROCEDURE: CT ABDOMEN PELVIS W CON INDICATIONS: Left-sided abdominal pain, vomiting, leukocytosis TECHNIQUE: After the administration of intravenous contrast, 5 mm thick sections acquired from the diaphragm to the symphysis. 5 mm coronal and sagittal reformats were acquired. For radiation dose reduction, the following was used: automated exposure control, adjustment of mA and/or kV according to patient size. COMPARISON: None. FINDINGS: Image quality: Excellent. ABDOMEN: Lung bases: Lung bases are clear except for what appears to be mild or early pneumonia at the medial segment right middle lobe and the lingular segment left upper lobe, and there is a calcified granuloma at the medial border of the medial segment on the right. This measures up to 673 Hounsfield units.. Heart size is normal. Solid organs: Liver is normal in size and enhancement. There are several scattered hepatic cysts. These measure water in density. Gallbladder appears normal. Biliary system is non dilated. Pancreas enhances normally. Spleen is normal in size and enhancement. No adrenal nodules. Kidneys demonstrate normal size and enhancement, without hydronephrosis. Peritoneum and bowel: Bowel loops demonstrate normal wall thickness and caliber. Small bowel loops are progressively more prominent in size as the pelvis is approached, with the maximal axial dimension at the low pelvis measuring up to 3.7 cm. There is a segmental focus of wall thickening and narrowing of the small bowel centered on series 2, image 75 near the peritoneal reflection, in a pattern possibly representing small bowel Crohn's disease. No free fluid or air. Nodes and vessels: No retroperitoneal or mesenteric adenopathy by size criteria. Aorta and inferior vena cava are normal in size. Miscellaneous: No ventral hernias. PELVIS: Genitourinary: Bladder wall thickness is normal. Miscellaneous: No inguinal hernias or adenopathy. Bones: No suspicious bony lesions. No vertebral body compression fractures. IMPRESSION: 1. Mild or early medial segment right middle lobe and lingular segment left upper lobe alveolar infiltration. This could represent pneumonia but also aspiration could explain that appearance. 2. Progressively greater small-bowel dilatation as the low pelvis is reached and there is a segmental area small bowel wall thickening and stricture, in a pattern most likely to represent segmental Crohn's disease in that area. No abscess or fistula is found. Dictated by: Peyman Mena M.D. on 11/06/2020 at 8:21 Approved by: Peyman Mena M.D. on 11/06/2020 at 8:26 MDM Narrative Medical decision making narrative: Dr reynoso: Received turned over. Reviewed patient's history and physical. Performed my own independent examination. Patient states she was feeling better after her treatment provided up to my assumption of care. She did have mild left-sided abdominal discomfort. She also has leukocytosis. Had a discussion with her stating that the leukocytosis could be stress reaction/demargination from all of the vomiting or could be indication of an intra-abdominal surgical/infectious issue. We did discuss CT scan. After this discussion we did opt to perform a CT scan which had some mention of concerns for pneumonia. Clinically she does not have pneumonia so we will hold on any antibiotics for this. Number also discussion about findings concerning for Crohn's disease. Patient states that she did have a colonoscopy 1 year ago in besides diverticulosis was told that everything was unremarkable. I did discuss this with the patient and told her that she needed to follow-up with her primary doctor. There is no indication for antibiotics will send home with nausea medication. She was able to tolerate oral intake here in the emergency department. She was given return precautions. She expressed understanding and agreement. Discharge Plan Departure Patient Disposition: Home Clinical Impression: Nausea and vomiting, Abdominal pain Instructions: Nausea and Vomiting-Adult Activity Restrictions/Additional Instructions: I do recommend that you continue all of your medications as directed. Start with eating a bland diet and then advance it as tolerated. Be sure to increase your fluid intake. Contact your primary doctor for follow-up. Return to the emergency department for any new or worsening symptoms Prescriptions: New ondansetron 4 mg tablet,disintegrating 4 mg PO Q6H PRN (Reason: nausea and vomiting) Qty: 14 RF: 0 No Action acyclovir 400 mg tablet 2 tab PO PRN PRN (Reason: breakout) Qty: 0 RF: 0 levothyroxine [Synthroid] 50 MCG tablet 12.5 mcg PO QAM Qty: 0 RF: 0 atenolol 25 mg Tablet 50 mg PO DAILY RF: 0 epinephrine [EpiPen 2-Damon] 0.3 MG/0.3 ML auto-injector 0.3 mg SQ X1 PRN (Reason: Allergic Reaction) RF: 0 Referrals: Mine Baird MD [Primary Care Provider] -
[2020-11-06 06:35] LABS: Basophils Absolute Auto 100 /uL (0-100); Basophils Percent Auto 0.4 % (0-2); Eosinophils Absolute Auto 0 /uL (0-450); Eosinophils Percent Auto 0.1 % (2-4); Hematocrit 51.1 % (36-46); Hemoglobin 17.3 g/dL (12.0-16.0); Lymphocytes Absolute Auto 500 /uL (1100-4500); Lymphocytes Percent Auto 3.2 % (25-40); Mean Corpuscular HGB Conc 33.8 % (30-36); Mean Corpuscular Hemoglobin 32.2 PG (26-34); Mean Corpuscular Volume 95.2 fL (80-100); Monocytes Absolute Auto 600 /uL (0-900); Monocytes Percent Auto 3.8 % (3-14); Neutrophils Absolute Auto 15600 /uL (1500-7000); Neutrophils Percent Auto 92.5 % (50-75); Platelet Count 256 X10^3/uL (150-400); Red Blood Cell Count 5.37 X10^6/uL (4.0-5.2); Red Cell Distribution Width 12.8 % (11.6-14.8); White Blood Cell Count 16.8 X10^3/uL (4.5-11.0)
[2020-11-06 06:36] LABS: Add Manual Diff / Slide Review SLIDE REVIEW
[2020-11-06] MEDS: MORPHINE 4 MG/ML INJ IV (06:41)
[2020-11-06] MEDS: SODIUM CHLORIDE 0.9% 1,000 ML 150 ML IV (06:43)
[2020-11-06 06:45] LABS: Alanine Aminotransferase 27 IU/L (<35); Albumin Globulin Ratio 1.3 (1.0-2.8); Alkaline Phosphatase 91 U/L (38-126); Aspartate Aminotransferase 37 IU/L (14-36); BUN Creatinine Ratio 19.1 (6-22); Bilirubin Total 1.1 mg/dL (0.2-1.3); Blood Urea Nitrogen 18 mg/dL (7-17); Calcium 11.1 mg/dL (8.4-10.2); Carbon Dioxide 29 mmol/L (22-32); Chloride 96 mmol/L (98-107); Estimated Glomerular Filt Rate 58.4 mL/min (>60); Globulin 3.9 g/dL (1.7-4.1); Glucose 176 mg/dL (80-110); HEMOLYSIS < 15 (0-50); Lipase 61 U/L (23-300); Potassium 4.3 mmol/L (3.4-5.1); Sodium 137 mmol/L (137-145); Total Protein 8.9 g/dL (6.3-8.2)
[2020-11-06 06:52] LABS: Creatine Kinase 47 U/L (30-135)
[2020-11-06 07:05] LABS: Troponin I < 0.012 ng/mL (0.01-0.034)
[2020-11-06 07:09] LABS: Platelet Estimate Adequate on smear
[2020-11-06 07:10] LABS: RBC Morphology Normal Morphology
--- NOTE | 2020-11-06 07:57 | DI.CT.S_ITS ---
PROCEDURE: CT ABDOMEN PELVIS W CON INDICATIONS: Left-sided abdominal pain, vomiting, leukocytosis TECHNIQUE: After the administration of intravenous contrast, 5 mm thick sections acquired from the diaphragm to the symphysis. 5 mm coronal and sagittal reformats were acquired. For radiation dose reduction, the following was used: automated exposure control, adjustment of mA and/or kV according to patient size. COMPARISON: None. FINDINGS: Image quality: Excellent. ABDOMEN: Lung bases: Lung bases are clear except for what appears to be mild or early pneumonia at the medial segment right middle lobe and the lingular segment left upper lobe, and there is a calcified granuloma at the medial border of the medial segment on the right. This measures up to 673 Hounsfield units.. Heart size is normal. Solid organs: Liver is normal in size and enhancement. There are several scattered hepatic cysts. These measure water in density. Gallbladder appears normal. Biliary system is non dilated. Pancreas enhances normally. Spleen is normal in size and enhancement. No adrenal nodules. Kidneys demonstrate normal size and enhancement, without hydronephrosis. Peritoneum and bowel: Bowel loops demonstrate normal wall thickness and caliber. Small bowel loops are progressively more prominent in size as the pelvis is approached, with the maximal axial dimension at the low pelvis measuring up to 3.7 cm. There is a segmental focus of wall thickening and narrowing of the small bowel centered on series 2, image 75 near the peritoneal reflection, in a pattern possibly representing small bowel Crohn's disease. No free fluid or air. Nodes and vessels: No retroperitoneal or mesenteric adenopathy by size criteria. Aorta and inferior vena cava are normal in size. Miscellaneous: No ventral hernias. PELVIS: Genitourinary: Bladder wall thickness is normal. Miscellaneous: No inguinal hernias or adenopathy. Bones: No suspicious bony lesions. No vertebral body compression fractures. IMPRESSION: 1. Mild or early medial segment right middle lobe and lingular segment left upper lobe alveolar infiltration. This could represent pneumonia but also aspiration could explain that appearance. 2. Progressively greater small-bowel dilatation as the low pelvis is reached and there is a segmental area small bowel wall thickening and stricture, in a pattern most likely to represent segmental Crohn's disease in that area. No abscess or fistula is found. Dictated by: Peyman Mena M.D. on 11/06/2020 at 8:21 Approved by: Peyman Mena M.D. on 11/06/2020 at 8:26
[2020-11-06 08:08] LABS: Bacteria Urine Moderate (10-30); Hyaline Casts Urine 30-100/LPF; RBC Urine 1-5/HPF (0-5/HPF); WBC Urine 0-1/HPF (0-5/HPF)
[2020-11-06 08:09] LABS: Culture Indicated Urine Specimen Cultured; Mucus Urine 1+ (Negative)
== END 2020-11-06 09:40 | disposition home or self-care (01) ==
PROVIDERS: Emergency Medicine; Emergency Provider Emergency Medicine; PCP Family Medicine
DX: R11.2 Nausea with vomiting, unspecified (principal); R10.9 Unspecified abdominal pain
CPT/HCPCS: 36415; 74177; 80053; 81003; 81015; 82550; 83690; 84484; 85025; 87086; 93005; 96361; 96374; 99284; J2270; Q9967

== ENCOUNTER 2022-06-07 04:48 | Observation (INO) | payer OTHER, SELFPAY ==
[2022-06-07] VITALS (7 sets, daily range): BP systolic 134–198; BP diastolic 63–87; PULSE 63–69; RESP 12–22; TEMP 36.6–37.4; O2SAT 93–99; BMI 22.8
--- NOTE | 2022-06-07 05:08 | ED.NAVMDI ---
HPI - Nausea/Vomiting/Diarrhea General Chief complaint: Nausea/Vomiting/Diarrhea Stated complaint: Nausea Time Seen by Provider: 06/07/22 04:50 Source: patient and EMS Mode of arrival: EMS Limitations: no limitations History of Present Illness HPI Narrative: Patient is a 77-year-old female. History of IBS. Here for evaluation of multiple episodes of abdominal cramping that is periodic. No diarrhea. Also vomiting and nausea. She had Zofran at home. She is taken about 5 doses of this medication without any improvement she continues to vomit. She is having abdominal pain but it comes and goes. States it feels like labor pains. Symptoms started last evening. She took 1 of the Zofran and then went to sleep but then woke up with symptoms worsening. No recent travel. No recent antibiotics. No medications nor fluids given by EMS prior to arrival. Upon arrival she states that her nausea has improved. States she did not need any more nausea medication. Related Data Home Medications Medication Instructions Recorded Confirmed acyclovir 400 mg tablet 2 tab PO PRN PRN breakout ##0 04/13/17 07/18/19 levothyroxine 50 mcg tablet 12.5 mcg PO QAM ##0 04/13/17 07/18/19 (Synthroid) atenolol 25 mg tablet 50 mg PO DAILY 11/01/18 07/18/19 epinephrine 0.3 mg/0.3 mL 0.3 mg SQ X1 PRN Allergic Reaction 11/01/18 11/01/18 injection, auto-injector (EpiPen 2-Damon) Previous Rx's Medication Instructions Recorded ondansetron 4 mg disintegrating 4 mg PO Q6H PRN nausea and 11/06/20 tablet vomiting #14 tabs cefuroxime axetil 500 mg tablet 500 mg PO BID #14 tabs 11/08/20 Allergies Allergy/AdvReac Type Severity Reaction Status Date / Time lisinopril Allergy Severe Angioedema Verified 11/01/18 07:37 losartan Allergy Severe angioedema Verified 11/12/18 12:52 Sulfa (Sulfonamide Allergy Severe Itchy Verified 11/12/18 12:52 Antibiotics) [SULFA (SULFONAMIDE ANTIBIOTICS)] hydrochlorothiazide Allergy Intermediate angeoedema Verified 11/12/18 12:52 metoprolol AdvReac Intermediate Dizziness Verified 11/12/18 12:52 Review of Systems Constitutional Constitutional: Reports system reviewed and no additional complaints, except as documented Cardiovascular Cardiovascular: Reports system reviewed and no additional complaints, except as documented Respiratory Respiratory: Reports system reviewed and no additional complaints, except as documented Gastrointestinal Gastrointestinal: Reports system reviewed and no additional complaints, except as documented Genitourinary Genitourinary: Reports system reviewed and no additional complaints, except as documented Patient History Medical History Angioedema (04/15/17) Chronic foot pain Chronic neck and back pain Dysuria-frequency syndrome HLD (hyperlipidemia) HTN (hypertension) Hypothyroid IBS (irritable bowel syndrome) Murmur Osteoporosis Pre-diabetes Rosacea Surgical History H/O total hysterectomy with bilateral salpingo-oophorectomy (BSO) (~1988) History of bilateral tubal ligation (~1974) History of colonoscopy (~10/2003) Social History household members: children Smoking Status: Never smoker alcohol intake: current Smoking Status: Never smoker alcohol intake frequency: a few times a month Substance Use Type: does not use Exam Initial Vital Signs Initial Vital Signs: Vital Signs Temperature 97.9 F 06/07/22 04:53 Pulse Rate 63 06/07/22 04:53 Respiratory Rate 22 06/07/22 04:53 Blood Pressure 153/71 H 06/07/22 04:53 Pulse Oximetry 99 06/07/22 04:53 Oxygen Delivery Method 06/07/22 04:53 HENIA Head: normal to inspection and normocephalic Resp Effort & Inspection: normal respiratory effort Cardio Rate: regular rate GI Inspection: non-distended Palpation: No guarding Neuro General: patient alert, patient awake and moves all extremities Extrem General: capillary refill normal Course Orders Ordered: ED Orders 06/07/22 05:25 Complete Blood Count AUTO DIFF Stat Comprehensive Metabolic Panel Stat Lipase Stat Discontinued Medications Dicyclomine HCl (Dicyclomine 10 Mg Capsule) 20 mg PO NOW ONE Stop: 06/07/22 05:37 Last Admin: 06/07/22 05:42 Dose: 20 mg Documented By: AP Sodium Chloride (Normal Saline 0.9%) 1,000 mls @ 1,000 mls/hr IV BOLUS ONE Stop: 06/07/22 05:52 Last Admin: 06/07/22 05:19 Dose: 1,000 mls/hr Documented By: PIYUSH Lorazepam (Lorazepam 0.5 Mg Tablet) 0.5 mg PO NOW ONE Stop: 06/07/22 06:17 Last Admin: 06/07/22 06:20 Dose: 0.5 mg Documented By: PIYUSH Metoclopramide HCl (Metoclopramide 10 Mg/2 Ml Inj) 10 mg IV NOW ONE Stop: 06/07/22 04:54 Last Admin: 06/07/22 06:20 Dose: Not Given Documented By: PIYUSH Vital Signs Vital signs: Vital Signs - 8 hr 06/07/22 04:53 Temperature 97.9 F Pulse Rate 63 Respiratory Rate 22 Blood Pressure 153/71 H Pulse Oximetry 99 Oxygen Delivery Method Room Air MDM - Nausea/Vomiting/Diarrhea Medical Records Attestation: I reviewed the patient's medical records. Lab Data Attestation: I reviewed the patient's lab results. Result diagrams: 06/07/22 05:25 06/07/22 05:25 Labs: Lab Results 06/07/22 06/07/22 Range/Units 05:25 05:25 WBC 12.9 H (4.5-11.0) X10^3/uL RBC 4.73 (4.0-5.2) X10^6/uL Hgb 15.5 (12.0-16.0) g/dL Hct 45.7 (36-46) % MCV 96.6 (80-100) fL MCH 32.7 (26-34) PG MCHC 33.8 (30-36) % RDW 13.3 (11.6-14.8) % Plt Count 242 (150-400) X10^3/uL Neut % (Auto) 87.6 H (50-75) % Lymph % (Auto) 6.4 L (25-40) % [place] % (Auto) 5.3 (3-14) % Eos % (Auto) 0.3 L (2-4) % Baso % (Auto) 0.4 (0-2) % Neut # (Auto) 67571 H (4016-7306) /uL Lymph # (Auto) 800 L (1238-1564) /uL [place] # (Auto) 700 (0-900) /uL Eos # (Auto) 0 (0-450) /uL Baso # (Auto) 100 (0-100) /uL Sodium 140 (137-145) mmol/L Potassium 4.3 (3.4-5.1) mmol/L Chloride 103 (98-107) mmol/L Carbon Dioxide 28 (22-32) mmol/L BUN 19 H (7-17) mg/dL Creatinine 0.74 (0.52-1.04) mg/dL Estimated GFR > 60 (>60) mL/min BUN/Creatinine Ratio 25.7 H (6-22) Glucose 134 H (80-110) mg/dL Calcium 9.5 (8.4-10.2) mg/dL Total Bilirubin 0.6 (0.2-1.3) mg/dL AST 33 (14-36) IU/L ALT 28 (<35) IU/L Alkaline Phosphatase 68 (38-126) U/L Total Protein 8.0 (6.3-8.2) g/dL Albumin 4.5 (3.5-5.0) g/dL Globulin 3.5 (1.7-4.1) g/dL Albumin/Globulin Ratio 1.3 (1.0-2.8) Lipase 77 (23-300) U/L MDM Narrative Medical decision making narrative: Patient has a history of IBS. Her symptoms started last evening took multiple doses of Zofran without improvement. Upon arrival she stated that her nausea has actually resolved. She did have a bowel movement. She is having significant cramping. Attempted Bentyl without any improvement. Then gave Ativan. Will hold on a CT scan for now. Care turned over to Dr. Macdonald to continue to observe until disposition. Discharge Plan Departure Prescriptions: No Action acyclovir 400 mg tablet 2 tab PO PRN PRN (Reason: breakout) Qty: 0 Rx Instructions: 2 tabs at onset of symptoms, then one tab tid as needed for breakout levothyroxine [Synthroid] 50 MCG tablet 12.5 mcg PO QAM Qty: 0 atenolol 25 mg Tablet 50 mg PO DAILY epinephrine [EpiPen 2-Damon] 0.3 MG/0.3 ML auto-injector 0.3 mg SQ X1 PRN (Reason: Allergic Reaction) ondansetron 4 mg tablet,disintegrating 4 mg PO Q6H PRN (Reason: nausea and vomiting) Qty: 14 0RF cefuroxime axetil 500 mg tablet 500 mg PO BID Qty: 14 0RF Referrals: Mine Baird MD [Primary Care Provider] -
[2022-06-07] MEDS: SODIUM CHLORIDE 0.9% 1,000 ML 1000 ML IV (05:19)
[2022-06-07 05:30] LABS: Add Manual Diff / Slide Review NO; Basophils Absolute Auto 100 /uL (0-100); Basophils Percent Auto 0.4 % (0-2); Eosinophils Absolute Auto 0 /uL (0-450); Eosinophils Percent Auto 0.3 % (2-4); Hematocrit 45.7 % (36-46); Hemoglobin 15.5 g/dL (12.0-16.0); Lymphocytes Absolute Auto 800 /uL (1100-4500); Lymphocytes Percent Auto 6.4 % (25-40); Mean Corpuscular HGB Conc 33.8 % (30-36); Mean Corpuscular Hemoglobin 32.7 PG (26-34); Mean Corpuscular Volume 96.6 fL (80-100); Monocytes Absolute Auto 700 /uL (0-900); Monocytes Percent Auto 5.3 % (3-14); Neutrophils Absolute Auto 11300 /uL (1500-7000); Neutrophils Percent Auto 87.6 % (50-75); Platelet Count 242 X10^3/uL (150-400); Red Blood Cell Count 4.73 X10^6/uL (4.0-5.2); Red Cell Distribution Width 13.3 % (11.6-14.8); White Blood Cell Count 12.9 X10^3/uL (4.5-11.0)
[2022-06-07 05:40] LABS: Alanine Aminotransferase 28 IU/L (<35); Albumin 4.5 g/dL (3.5-5.0); Albumin Globulin Ratio 1.3 (1.0-2.8); Alkaline Phosphatase 68 U/L (38-126); Aspartate Aminotransferase 33 IU/L (14-36); BUN Creatinine Ratio 25.7 (6-22); Bilirubin Total 0.6 mg/dL (0.2-1.3); Blood Urea Nitrogen 19 mg/dL (7-17); Calcium 9.5 mg/dL (8.4-10.2); Carbon Dioxide 28 mmol/L (22-32); Chloride 103 mmol/L (98-107); Estimated Glomerular Filt Rate > 60 mL/min (>60); Globulin 3.5 g/dL (1.7-4.1); Glucose 134 mg/dL (80-110); HEMOLYSIS < 15 (0-50); Lipase 77 U/L (23-300); Potassium 4.3 mmol/L (3.4-5.1); Sodium 140 mmol/L (137-145)
[2022-06-07] MEDS: DICYCLOMINE 10 MG CAPSULE 20 MG PO (05:42)
[2022-06-07] MEDS: LORazepam 0.5 MG TABLET PO (06:20)
[2022-06-07] MEDS: MORPHINE 4 MG/ML INJ IV ×2 (07:02→09:21)
--- NOTE | 2022-06-07 07:05 | PC.NURSE ---
Med for c/o abd. cramping and being restless.
--- NOTE | 2022-06-07 08:42 | DI.CT.S_ITS ---
PROCEDURE: CT ABDOMEN PELVIS W CON INDICATIONS: abdominal pain TECHNIQUE: After the administration of intravenous contrast, axial sections acquired from the lung bases to the pubic symphysis. Coronal and sagittal reformats were performed. For radiation dose reduction, the following was used: automated exposure control, adjustment of mA and/or kV according to patient size. COMPARISON: [facility], CT, CT ABDOMEN PELVIS W CON, 11/06/2020, 7:53. FINDINGS: Lower thorax: The lung bases are clear. Heart size normal. No hiatal hernia. Liver: Normal in size and attenuation. No contour deformity present. Right hepatic cyst remains unchanged. Biliary system: No calcified cholelithiasis or pericholecystic inflammation. No intra or extrahepatic bile duct dilatation. Pancreas: Unremarkable without mass or inflammation evident. Spleen: Normal in size and density. Adrenals: Normal morphology and density. Reproductive system: Unremarkable as visualized. Urinary system: Normal renal size and attenuation. No renal calculi, hydronephrosis, or solid mass present. Urinary bladder unremarkable. Gastrointestinal system: Fluid distension of the small bowel with mural enhancement. Dilation measures up to 3 cm. There is a transition in the pelvis to a normal caliber bowel, similar to the prior study in 2020. Colon is unremarkable. Appendix: No findings to suggest acute appendicitis. Peritoneal spaces: No mesenteric or retroperitoneal adenopathy. No free air. No free fluid. Vasculature: The IVC, aorta and iliac vasculature are unremarkable. Abdominal wall: Right inguinal hernia(s) contain fat without bowel involvement. Musculoskeletal: Normal bone mineralization. No acute fractures. IMPRESSION: 1. Small-bowel obstruction. Proximal small bowel is dilated to 3 cm, distal small bowel is decompressed. Transition point is similar to the prior study in the pelvis Approved by: Kris Kaufman M.D. on 06/07/2022 at 9:00
[2022-06-07 11:30] LABS: COVID19 -Nasal RAPID Negative (Negative)
[2022-06-07] MEDS: ENOXAPARIN 40 MG/0.4 ML SYRINGE SUBCUT (12:16)
[2022-06-07] MEDS: KETOROLAC 30 MG/ML VIAL 15 MG IV (12:16)
[2022-06-07] MEDS: SODIUM CHLORIDE 0.9% 1,000 ML 100 ML IV ×2 (12:17→22:09)
--- NOTE | 2022-06-07 15:59 | PM.HP.1 ---
History of Present Illness History of Present Illness Chief complaint: Nausea Narrative: Ms. Berry presents to the emergency room with abdominal pain and nausea. She has a history of IBS says that she experiences this as abdominal pain and vomiting. She takes some medications at home that seemed to help. This episode started yesterday she went home early because she started to feel a little crampy in the evening yesterday. And then last night she was awakened with severe abdominal pains that felt like waves of pain like hard labor.She is had several gynecologic surgeries in the past and 1 point her ovarian tube was even twisted. She is been hospitalized about 4 times since 1994 with similar symptoms. She says she always gets better and has never need surgery for it she further has never had an NG tube placed during any of these hospitalizations. She had a lot of vomiting before presentation and last night in the emergency room. She is feeling better today. She is having some diarrhea. Patient History Medical History Angioedema (04/15/17) Chronic foot pain Chronic neck and back pain Dysuria-frequency syndrome HLD (hyperlipidemia) HTN (hypertension) Hypothyroid IBS (irritable bowel syndrome) Murmur Osteoporosis Pre-diabetes Rosacea Surgical History H/O total hysterectomy with bilateral salpingo-oophorectomy (BSO) (~1988) History of bilateral tubal ligation (~1974) History of colonoscopy (~10/2003) Family & Social History Social History: household members significant other Prior Living Arrangements House Safety & Behavioral: Feels Safe in Current Yes Environment Tobacco & Substance use: Smoking Status Never smoker alcohol intake current alcohol intake frequency a few times a week Substance Use Type does not use Meds Home Medications and Allergies Home Medications Medication Instructions Recorded Confirmed Type acyclovir 400 mg tablet 2 tab PO PRN PRN breakout ##0 04/13/17 06/07/22 History levothyroxine 50 mcg tablet 12.5 mcg PO QAM ##0 04/13/17 06/07/22 History (Synthroid) epinephrine 0.3 mg/0.3 mL 0.3 mg SQ X1 PRN Allergic Reaction 11/01/18 06/07/22 History injection, auto-injector (EpiPen 2-Damon) ondansetron 4 mg disintegrating 4 mg PO Q6H PRN nausea and 11/06/20 06/07/22 Rx tablet vomiting #14 tabs amlodipine 2.5 mg tablet 2.5 mg PO QAM 06/07/22 06/07/22 History estradiol 0.01% (0.1 mg/gram) 0.1 applic vaginal 2XW 06/07/22 06/07/22 History vaginal cream metoprolol succinate 25 mg 25 mg PO BID 06/07/22 06/07/22 History tablet,extended release 24 hr Allergies Allergy/AdvReac Type Severity Reaction Status Date / Time lisinopril Allergy Severe Angioedema Verified 06/07/22 12:59 losartan Allergy Severe angioedema Verified 06/07/22 12:59 Sulfa (Sulfonamide Allergy Severe Itchy Verified 06/07/22 12:59 Antibiotics) [SULFA (SULFONAMIDE ANTIBIOTICS)] hydrochlorothiazide Allergy Intermediate angeoedema Verified 06/07/22 12:59 Exam Vital Signs (past 8 hours): - 06/07/22 09:21 06/07/22 09:21 06/07/22 09:30 Temperature Pulse Rate 68 Respiratory Rate Blood Pressure 152/69 H 135/63 Pulse Oximetry 95 Oxygen Flow Rate 06/07/22 09:30 06/07/22 11:35 Temperature 98.4 F Pulse Rate 69 67 Respiratory Rate 12 Blood Pressure 134/67 Pulse Oximetry 96 93 Oxygen Flow Rate 0 Oxygen Delivery Method Room Air Oxygen Flow Rate 0 Const General: cooperative, healthy appearing and comfortable Orientation: alert, awake and oriented x3 HENMT Head: normal to inspection and other (Mucous membranes are little dry) Resp Effort & Inspection: normal respiratory effort and able to speak in complete sentences Cardio Pulses: radial pulses present GI Inspection: distended (Mild distention) Palpation: soft and tender (Very mild tenderness on the left side) Extrem Other: No edema Objective Labs Result Diagrams: 06/07/22 05:25 06/07/22 05:25 Labs: Laboratory Results - last 24 hr 06/07/22 06/07/22 06/07/22 05:25 05:25 11:10 WBC 12.9 H RBC 4.73 Hgb 15.5 Hct 45.7 MCV 96.6 MCH 32.7 MCHC 33.8 RDW 13.3 Plt Count 242 Neut % (Auto) 87.6 H Lymph % (Auto) 6.4 L [place] % (Auto) 5.3 Eos % (Auto) 0.3 L Baso % (Auto) 0.4 Neut # (Auto) 09610 H Lymph # (Auto) 800 L [place] # (Auto) 700 Eos # (Auto) 0 Baso # (Auto) 100 Sodium 140 Potassium 4.3 Chloride 103 Carbon Dioxide 28 BUN 19 H Creatinine 0.74 Estimated GFR > 60 BUN/Creatinine Ratio 25.7 H Glucose 134 H Calcium 9.5 Total Bilirubin 0.6 AST 33 ALT 28 Alkaline Phosphatase 68 Total Protein 8.0 Albumin 4.5 Globulin 3.5 Albumin/Globulin Ratio 1.3 Lipase 77 SARS-CoV-2 (PCR) Negative Assessment & Plan Assessment and plan (1) Bowel obstruction: Problem details: Adhesive Qualifiers: Intestinal obstruction type: obstruction due to adhesions Intestinal obstruction extent: unspecified extent Qualified Code(s): K56.50 - Intestinal adhesions [bands], unspecified as to partial versus complete obstruction Status: Acute Assessment & Plan narrative: Ms. Berry has a small-bowel obstruction which is likely due to adhesions. It seems as though the obstructive point is in a similar location to the last CT scan. It is low down in the pelvis, likely scar tissue as a result of gynecologic surgeries. At this time she is feeling pretty well she complains of feeling thirsty though not hungry but she is not nauseated anymore and her pain is gone. Therefore I will start a clear liquid diet and place her on Lovenox for DVT prophylaxis and give her her home meds. If her pain gets worse then we could place an NG tube. I discussed with her surgical options for adhesive small bowel obstructions that do not resolve with ?bowel rest.? She understands. For now we are going to try a clear liquid diet and see how she does. Time Spent With Patient Critical Care time: I spent a total of [] minutes of critical care time on this patient's care today; this time is exclusive of procedural time.
[2022-06-07] MEDS: METOPROLOL ER 25 MG TABLET PO (20:30)
--- NOTE | 2022-06-07 21:06 | PC.NURSE ---
Patient is alert and oriented; slightly JAMUL. Breath sounds CTA with RA sat of 96%. HRR. Denies nausea. BT present in all quads and reports from previous RN and patient is that she had liquid stool earlier. Denies abdominal pain/tenderness but is still mildly distended; soft. Denies dysuria, frequency or urgency with urination. Relates she did have some stress incontinence/stool urgency earlier today but denies either at this time. Is independent with mobility but calls for staff assist when out of bed due to IV and SCD's. Bilateral calf SCD's applied after being up to the bathroom. Fall risk score is low.
[2022-06-08 05:29] VITALS: TEMP 36.4
[2022-06-08 05:45] LABS: Hematocrit 36.6 % (36-46); Hemoglobin 12.2 g/dL (12.0-16.0); Mean Corpuscular HGB Conc 33.5 % (30-36); Mean Corpuscular Hemoglobin 32.5 PG (26-34); Mean Corpuscular Volume 97.2 fL (80-100); Platelet Count 178 X10^3/uL (150-400); Red Blood Cell Count 3.76 X10^6/uL (4.0-5.2); Red Cell Distribution Width 13.2 % (11.6-14.8); White Blood Cell Count 4.9 X10^3/uL (4.5-11.0)
[2022-06-08] MEDS: LEVOTHYROXINE 25 MCG TABLET 12.5 MCG PO (05:55)
[2022-06-08 05:59] LABS: BUN Creatinine Ratio 18.8 (6-22); Blood Urea Nitrogen 12 mg/dL (7-17); Calcium 7.2 mg/dL (8.4-10.2); Carbon Dioxide 28 mmol/L (22-32); Chloride 108 mmol/L (98-107); Estimated Glomerular Filt Rate > 60 mL/min (>60); Glucose 89 mg/dL (80-110); HEMOLYSIS < 15 (0-50); Potassium 3.9 mmol/L (3.4-5.1); Sodium 139 mmol/L (137-145)
[2022-06-08 07:54] VITALS: BP 158/65; PULSE 53; RESP 16; TEMP 36.5; O2SAT 97
--- NOTE | 2022-06-08 08:32 | PC.NURSE ---
Patient is alert and oriented x4, her abdomen is soft but distended. She was up and had a small bowel movement this morning. She states that her abdomen is in slight pain, but she is tolerating this. Will offer pain medication if needed. Bowel tones are + but hypoactive. IVF infusing to l.arm, she states that her hand is swollen but iv looks wnl. Hand does not look puffy at this time, will reassess in 1 hour.
[2022-06-08] MEDS: AMLODIPINE 5 MG TABLET 2.5 MG PO (08:38)
[2022-06-08] MEDS: SODIUM CHLORIDE 0.9% 1,000 ML 100 ML IV (08:38)
[2022-06-08] MEDS: METOPROLOL ER 25 MG TABLET PO (08:42)
[2022-06-08] MEDS: ENOXAPARIN 40 MG/0.4 ML SYRINGE SUBCUT (08:42)
--- NOTE | 2022-06-08 11:08 | CM.DANOTE ---
DCP: Case received, EMR reviewed, this DCP introduced self to patient and was able to obtain information regarding pt's baseline activity level prior to hospitalization, as well as current living situation. DCP's assessment completed with information currently available. Pt came in via ambulance on 06/07/2022 to the care of Surgical team. PCP- Dr. Oli Canor- [employer] Pt came to the hospital secondary to having nausea, vomitting and abdominal cramping. She has past medical history of IBS, HTN, HDL, Osteoporosis, Pre-diabetes, Chronic foot, neck and back pain. She is currently under the care of the surgical team. Met with pt in her room. She was sitting up in bed. She confirmed that she resides in [place] and that she lives alone. Pt reports that she drives and that she is independent with all ADL's. She states that her life partner will pick her up and drive her home when she is discharged from the hospital. Pt states that her oldest son is her main contact if anything should happen and she provided this DCP with his information. Sánchez Bearden . P: Pt to discharge home independently. Discharge Planning/Care Management Advanced directive, confirm from FAMILY Start: 06/07/22 12:39 Freq: Q24H Status: Active Protocol: Document 06/07/22 12:39 AKP (Rec: 06/07/22 12:40 AKP [id number]) Advance Directive, confirm on record Time 12:40 Person contacted patient states it is unfinished Copy received No CM Discharge Assessment Start: 06/08/22 11:02 Freq: Status: Active Protocol: Document 06/08/22 11:03 ANIBAL (Rec: 06/08/22 11:08 ANIBAL [id number]) Discharge Planning Assessment Assigned Construction Engineering Manager Liv Sewell RN Case Manager Advance Directives? Yes: pt states it is unfinished Advance Directives on File No History Provided By Patient Prior Living Arrangements House Household Members significant other Type of transporation used prior to Drives own vehicle admit Independent with ADL's Yes Is patient alert and oriented? Yes Comment Pt is independent with adl's Caregiver for Another No Barriers to Discharge No Discharge Plan Home Transportation Arrangement Significant other to pick pt up when discharged Referrals Initiated None needed Whiteboard Updated in Patient Room with Yes name and ext. # of Construction Engineering Manager Review Status In Process Next Review Type Continued Stay Review
[2022-06-08] MEDS: KETOROLAC 30 MG/ML VIAL 15 MG IV (12:23)
--- NOTE | 2022-06-08 14:15 | PM.DS.1 ---
History of Present Illness History of Present Illness Chief complaint: Nausea Narrative: Ms. Berry presents to the emergency room with abdominal pain and nausea. She has a history of IBS says that she experiences this as abdominal pain and vomiting. She takes some medications at home that seemed to help. This episode started yesterday she went home early because she started to feel a little crampy in the evening yesterday. And then last night she was awakened with severe abdominal pains that felt like waves of pain like hard labor.She is had several gynecologic surgeries in the past and 1 point her ovarian tube was even twisted. She is been hospitalized about 4 times since 1994 with similar symptoms. She says she always gets better and has never need surgery for it she further has never had an NG tube placed during any of these hospitalizations. She had a lot of vomiting before presentation and last night in the emergency room. She is feeling better today. She is having some diarrhea. Discharge Providers Provider Date of admission: 06/07/22 12:01 Discharge Date: 06/08/22 Primary care physician: Mine Baird MD Discharge provider: Milly Nogueira MD Summary Hospital Course Discharge Diagnosis: Small-bowel obstruction Hospital Course: Patient was admitted to the hospital and kept NPO overnight she was provided IV fluids. Her symptoms resolved relatively quickly and in the morning on her 2nd hospital day she felt fairly well. On hospital day 2 she tolerated a clear liquid diet and her pain was resolved. She is had these before and felt very comfortable being discharged home. She understands the need to return to the hospital if her pain would recur. Status at Discharge Cognitive/behavioral status at discharge: oriented Functional status at discharge: independent ambulation Overall status at discharge: other Time Spent with Patient Time spent: Less than 30 minutes Exam Vital Signs (past 8 hours): - 06/08/22 07:54 Temperature 97.7 F Pulse Rate 53 L Respiratory Rate 16 Blood Pressure 158/65 H Pulse Oximetry 97 Oxygen Flow Rate 0 Oxygen Delivery Method Room Air Oxygen Flow Rate 0 Const General: cooperative, healthy appearing and comfortable [facility] Head: normal to inspection Resp Effort & Inspection: normal respiratory effort and able to speak in complete sentences Cardio Pulses: radial pulses present GI Palpation: soft and No tender Objective Imaging CT scan - abdomen: My impression: Small bowel obstruction with a transition point in the low pelvis. Similar location to previous scan from hospitalization about a year ago. Labs Result Diagrams: 06/08/22 04:41 06/08/22 04:41 Labs: Laboratory Results - last 24 hr 06/08/22 06/08/22 04:41 04:41 WBC 4.9 D RBC 3.76 L Hgb 12.2 Hct 36.6 MCV 97.2 MCH 32.5 MCHC 33.5 RDW 13.2 Plt Count 178 Sodium 139 Potassium 3.9 Chloride 108 H Carbon Dioxide 28 BUN 12 Creatinine 0.64 Estimated GFR > 60 BUN/Creatinine Ratio 18.8 Glucose 89 Calcium 7.2 L PFSH Medical History Angioedema (04/15/17) Chronic foot pain Chronic neck and back pain Dysuria-frequency syndrome HLD (hyperlipidemia) HTN (hypertension) Hypothyroid IBS (irritable bowel syndrome) Murmur Osteoporosis Pre-diabetes Rosacea Surgical History H/O total hysterectomy with bilateral salpingo-oophorectomy (BSO) (~1988) History of bilateral tubal ligation (~1974) History of colonoscopy (~10/2003) Social History household members: significant other Smoking Status: Never smoker alcohol intake: current Discharge Assessment & Plan Assessment and Plan Assessment: Adhesive small bowel obstruction. Plan of Treatment: I discussed adhesive disease and obstructions with the patient providing education on etiology and treatments. I have provided her in the discharge paperwork with my office information. She can follow-up as needed and I did explain that if she continues to have repeated obstructions especially surrounding the same area of transition point there maybe some success with surgery to take down that particular adhesion. The reason we do not routinely do surgery in the case of adhesive small bowel obstructions is that of course any further surgery has the potential to form more scar tissue and may or may not in the long run be helpful. There is no way to know but generally when the patient becomes so frustrated with repeated hospitalizations and pain that they feel something needs to be done that is when we might attempt surgical lysis of adhesions. Sometimes this can be achieved laparoscopically but often requires an open procedure. Further if we could be arranged to have the assistance of a careers adviser if that seems like something that can help. In fact I think some gynecologic surgeons do a lysis of adhesions as part of their practice as well. Discharge Plan Discharge Plan Patient Disposition: Home Discharge orders & Medications Prescriptions: New ketorolac 10 mg tablet 10 mg PO QID PRN (Reason: pain) 5 Days Qty: 20 0RF Rx Instructions: Do not take with Advil/Ibuprofen/Motrin or other NSAIDs. Take with food. Continued acyclovir 400 mg tablet 2 tab PO PRN PRN (Reason: breakout) Qty: 0 Rx Instructions: 2 tabs at onset of symptoms, then one tab tid as needed for breakout levothyroxine [Synthroid] 50 MCG tablet 12.5 mcg PO QAM Qty: 0 epinephrine [EpiPen 2-Damon] 0.3 MG/0.3 ML auto-injector 0.3 mg SQ X1 PRN (Reason: Allergic Reaction) ondansetron 4 mg tablet,disintegrating 4 mg PO Q6H PRN (Reason: nausea and vomiting) Qty: 14 0RF metoprolol succinate 25 mg tablet extended release 24 hr 25 mg PO BID Label Comments: TAKE 1 TABLET BY MOUTH TWICE DAILY amlodipine 2.5 mg tablet 2.5 mg PO QAM Label Comments: Take 1 tablet by mouth once a day estradiol 0.01 % (0.1 mg/gram) cream 0.1 applic VAGINAL 2XW Follow up/Referrals: Milly Nogueira MD [Physician] - (as needed. ) Mine Baird MD [Primary Care Provider] - Diet/Activity/Treatments Diet: Diet as Tolerated Visit Report/Discharge Packet Instructions: DI for Small Bowel Obstruction, Ketorolac Stand Alone Forms: Patient Portal/API, Stroke Signs & Symptoms Discharge Data Primary Care Provider: Mine Baird Attending Provider: iMlly Nogueira
--- NOTE | 2022-06-08 14:31 | PC.NURSE ---
Discharge instructions and home care handouts reviewed with patient, she states understanding and has no further questions or concerns at this time. IV dc'd intact. Patient will make follow up as needed. Patient escorted out via wheelchair with all her belongings to discharge to home with her friend.
== END 2022-06-08 14:32 | disposition home or self-care (01) ==
LOC: ED 10:13 → AC 12:02
PROVIDERS: Emergency Medicine; Admitting Provider Surgery; Emergency Provider Emergency Medicine; PCP Family Medicine; Referring Provider Emergency Medicine; Visit Provider Surgery
DX: K56.50 Intestinal adhesions [bands], unspecified as to partial versus complete obstruction (principal); R11.2 Nausea with vomiting, unspecified; R19.7 Diarrhea, unspecified; Z20.822 Contact with and (suspected) exposure to COVID-19
CPT/HCPCS: 36415; 74177; 80048; 80053; 83690; 85025; 85027; 87635; 93005; 93010; 96361; 96372; 96374; 96375; 96376; 99222; 99238; 99284; C9803; G0378; J1650; J1885; J2270; Q9967

== ENCOUNTER → 2022-09-18 09:14 | Outpatient (CLI) | payer OTHER, SELFPAY ==
[2022-06-07 12:28] VITALS: BMI 22.8
--- NOTE | 2022-09-18 | DI.ECHO.S_ITS ---
[place] +---------+ Hospital +---------+ : : [address] : : : : [phone] : : : : Phone: [phone]---------+ Echocardiogram Report + + :Name: PROSPER SEE Study Date: 09/18/2022 Height: 60 in : :[facility] ReadingLocation: Weight: 119 lb : : Gender: Female BSA: 1.5 m2 : :: 1945 Age: 77 yrs BP: 130/74 mmHg: :Reason For Study: MITRAL REGURGITATION : :Ordering Physician: MANDEEP, : :CARO Performed By: Palak Marie : :Referring: CARO MOSER : + + Interpretation Summary Normal sinus rhythm. Normal LV size and wall thickness; normal wall motion and LV systolic function. EF is 60-65%. Normal chamber sizes. Posterior mitral valve leaflet prolapse with mild-moderate associated eccentric anteroseptally directed mitral regurgitation. Otherwise no significant valvular abnormalities. PA systolic pressure is estimated at 43 mm Hg assuming RA pressure of 3 mm Hg. Compared to prior study 04/27/2020, PVC's are no longer seen. Procedure: A two-dimensional transthoracic echocardiogram with color flow and Doppler was performed. The study quality was technically adequate. Comparison is made with the echocardiogram of 04/27/2020. The patient was in sinus bradycardia with heart rates between 50-55 bpm during the exam. Left Ventricle: The left ventricle is normal in size and wall thickness. The ejection fraction is estimated to be 60-65%. Right Ventricle: The right ventricle is normal in size and function. Atria: The left atrial size is normal. Right atrial size is normal. There is no Doppler evidence for an interatrial shunt. Mitral Valve: There is mild mitral valve prolapse. There is mild to moderate mitral regurgitation. The mitral regurgitant jet is eccentrically directed. Aortic Valve: The aortic valve is trileaflet. The aortic valve opens well. There is no aortic valve stenosis. No aortic regurgitation is present. Tricuspid Valve: The tricuspid valve leaflets are thin and pliable. There is mild tricuspid regurgitation. The right ventricular systolic pressure is estimated to be at least 43 mmHg based on an estimated right atrial pressure of 3 mm Hg. Pulmonic Valve: The pulmonic valve leaflets are thin and pliable; valve motion is normal. There is mild pulmonic regurgitation. Great Vessels: The aortic root is normal size. The dimensions of the ascending aorta are normal. The IVC is of normal diameter and collapses greater than 50% with a sniff. This suggests a low right atrial pressure of 3 mm Hg. Pericardium/ Pleura There is no pericardial effusion. There is no pleural effusion. MMode/2D Measurements & Calculations LVIDd: 4.4 cm LVOT diam: 1.9 cm LVIDs: 2.8 cm Ao root diam: 3.0 cm FS: 36.8 % asc Aorta Diam: 3.3 cm IVSd: 0.87 cm Ao Arch Diam (Prox Trans): 2.4 cm LVPWd: 0.81 cm LV saravia. diameter/BSA (cm/m^2): 2.9 LV sys. diameter/BSA (cm/m^2): 1.8 LA A2 area: 19.1 cm2 RA long axis: 4.8 cm LA A4 area: 16.0 cm2 RA area: 13.4 cm2 LA length (vol): 5.1 cm RA vol: 32.0 ml LA vol: 50.5 ml RA : 21.4 ml/m2 LA vol index: 33.8 ml/m2 IVC diam: 1.5 cm RVD1 (basal): 3.3 cm RVD2 (mid): 2.4 cm TAPSE: 2.0 cm Doppler Measurements & Calculations Ao V2 max: 153.9 cm/sec LVOT Max Jose: 131.6 cm/sec Ao V2 mean: 107.3 cm/sec LV V1 max P.9 mmHg Ao max P.5 mmHg LV V1 VTI: 34.0 cm Ao mean P.2 mmHg GLENNY(I,D): 2.4 cm2 Ao V2 VTI: 39.2 cm GLENNY(V,D): 2.3 cm2 sev ratio: 0.87 GLENNY indexed to BSA (cm^2/m^2): 1.6 MV E max jose: 58.8 cm/sec TR max jose: 315.6 cm/sec MV A max jose: 112.0 cm/sec TR max P.8 mmHg MV E/A: 0.52 PA V2 max: 102.6 cm/sec Med Peak E' Jose: 4.9 cm/sec PA V2 mean: 65.5 cm/sec E/E' med: 12.0 PA mean P.0 mmHg Lat Peak E' Jose: 7.4 cm/sec PA pr(Accel): 44.7 mmHg E/E' lat: 7.9 E/e' average: 10.0 MV dec time: 0.29 sec SV(OT): 92.6 ml Electronically signed by: Tenisha Shepherd M.D. on Reading Physician:09/19/2022 02:58 AM
--- NOTE | 2022-09-18 10:08 | DI.DEXA.S_ITS ---
Bone Density Report Name: PROSPER SEE Age: 77 Sex: Female Ethnicity: White Date of : 1945 Indication: postmenopausal osteoporosis; Referring Provider: CARO MOSER Study: Bone densitometry was performed. Exam Date: September 18, 2022 Accession number: [id number] Bone Density: Region BMD T-score Z-score Classification AP Spine(L1-L4) 0.654 -3.6 -1.2 Osteoporosis Femoral Neck (Left) 0.575 -2.5 -0.4 Osteoporosis Total Hip (Left) 0.683 -2.1 -0.3 Osteopenia Femoral Neck (Right) 0.592 -2.3 -0.2 Osteopenia Total Hip (Right) 0.743 -1.6 0.2 Osteopenia Total Hip Mean 0.713 -1.9 -0.1 Osteopenia World Health Organization criteria for BMD impression classify patients as: Normal (T-score at or above -1.0), Osteopenia (T-score between -1.0 and -2.5), or Osteoporosis (T-score at or below -2.5). 10-year Fracture Risk: FRAX not reported because: Some T-score for Spine Total or Hip Total or Femoral Neck at or below -2.5 Previous Exams: -- Region Exam Age BMD T-score BMD Change BMD Change Date g/cm2 vs Baseline vs Previous -- AP Spine (L1-L4) 09/18/2022 77 0.654 -3.6 -0.031 (-4.5%)# -0.031 (-4.5%)# 07/12/2020 75 0.685 -3.3 Total Hip(Left) 09/18/2022 77 0.683 -2.1 -0.052 (-7.0%)# -0.052 (-7.0%)# 07/12/2020 75 0.734 -1.7 Total Hip(Right) 09/18/2022 77 0.743 -1.6 -0.002 (-0.2%)# -0.002 (-0.2%)# 07/12/2020 75 0.745 -1.6 -- *Denotes significance at 95% confidence level, LSC for AP Spine = 0.022 g/cm2, LSC for Total Hip = 0.027 g/cm2 # Denotes dissimilar scan types or analysis methods Impression: The patient has osteoporosis, based on the Total Spine T-score. No significant bone loss was observed. Discussion: INCREASED RISK OF FRACTURE. BONE DENSITY IS UNDESIRABLY LOW AT ONE OR MORE SKELETAL SITES, CONSISTENT WITH POSTMENOPAUSAL OSTEOPOROSIS. This patient's lowest T-score meets the World Health Organization's (WHO) criteria for osteoporosis at one or more sites (T-score -2.5 or below). In untreated patients, the risk of osteoporotic fracture increases approximately two-fold for each 1.0 SD decrease in T-score. Low bone density is not the only risk factor for fracture; also consider factors such as patient's age, frailty or poor health, risk of falling, risk of injury, previous osteoporotic fracture, family history of osteoporosis, cigarette smoking, low body weight, etc. Not everyone with low bone mineral density has osteoporosis; osteomalacia and other metabolic bone disorders should also be considered. Patients who have osteoporosis should be evaluated for specific diseases and conditions (secondary causes) that may cause or contribute to bone loss. The [place] Association [employer] Clinical Endocrinologists (AACE) and National Osteoporosis Foundation (NOF) recommend pharmacologic intervention for all postmenopausal women whose T-score is in this range. The patient should follow a healthful lifestyle (good nutrition with adequate calcium and vitamin D, and appropriate weight-bearing exercise). Follow-Up: Consider a repeat BMD and Vertebral Fracture Assessment (VFA) exam in 2 years or sooner if medically necessary, to reassess this patient's status. Reported by: MOMO MENCHACA M.D. on 09/18/2022 10:16:00 AM.
== END ==
PROVIDERS: PCP Family Medicine; Referring Provider Family Medicine; Visit Provider Family Medicine
DX: M81.0 Age-related osteoporosis without current pathological fracture (principal); I08.1 Rheumatic disorders of both mitral and tricuspid valves
CPT/HCPCS: 77080; 93306

== ENCOUNTER → 2023-08-26 09:46 | Outpatient (CLI) | payer OTHER, SELFPAY ==
[2022-06-07 12:28] VITALS: BMI 22.8
--- NOTE | 2023-08-26 09:48 | DI.RAD.S_ITS ---
Bone Density Report Name: PROSPER SEE Age: 78 Sex: Female Ethnicity: White Date of : 1945 Indication: postmenopausal osteoporosis; Referring Provider: CARO MOSER Study: Bone densitometry was performed. Exam Date: August 26, 2023 Accession number: [id number] Bone Density: Region BMD T-score Z-score Classification AP Spine(L1-L4) 0.673 -3.4 -0.9 Osteoporosis Femoral Neck (Left) 0.578 -2.4 -0.3 Osteopenia Total Hip (Left) 0.693 -2.0 -0.2 Osteopenia Femoral Neck (Right) 0.578 -2.4 -0.3 Osteopenia Total Hip (Right) 0.751 -1.6 0.3 Osteopenia Total Hip Mean 0.722 -1.8 0.1 Osteopenia World Health Organization criteria for BMD impression classify patients as: Normal (T-score at or above -1.0), Osteopenia (T-score between -1.0 and -2.5), or Osteoporosis (T-score at or below -2.5). 10-year Fracture Risk: FRAX not reported because: Some T-score for Spine Total or Hip Total or Femoral Neck at or below -2.5 Previous Exams: -- Region Exam Age BMD T-score BMD Change BMD Change Date g/cm2 vs Baseline vs Previous -- AP Spine (L1-L4) 08/26/2023 78 0.673 -3.4 -0.007 (-1.1%)# 0.019 (2.9%) 09/18/2022 77 0.654 -3.6 -0.027 (-3.9%)# -0.031 (-4.5%)# 07/12/2020 75 0.685 -3.3 0.004 (0.6%) -0.011 (-1.6%) 09/08/2018 73 0.696 -3.2 0.015 (2.2%) 0.012 (1.7%) 12/16/2012 67 0.684 -3.3 0.003 (0.5%) 0.003 (0.5%) 12/18/2010 65 0.681 -3.3 Total Hip(Left) 08/26/2023 78 0.693 -2.0 -0.032 (-4.4%)# 0.010 (1.5%)# 09/18/2022 77 0.683 -2.1 -0.042 (-5.8%)# -0.052 (-7.0%)# 07/12/2020 75 0.734 -1.7 0.010 (1.3%) -0.006 (-0.8%) 09/08/2018 73 0.740 -1.7 0.016 (2.2%) -0.003 (-0.4%) 12/16/2012 67 0.743 -1.6 0.019 (2.6%) 0.019 (2.6%) 12/18/2010 65 0.725 -1.8 Total Hip(Right) 08/26/2023 78 0.751 -1.6 0.001 (0.2%)# 0.007 (1.0%)# 09/18/2022 77 0.743 -1.6 -0.006 (-0.8%)# -0.002 (-0.2%)# 07/12/2020 75 0.745 -1.6 -0.004 (-0.6%) -0.011 (-1.4%) 09/08/2018 73 0.756 -1.5 0.007 (0.9%) -0.012 (-1.5%) 12/16/2012 67 0.768 -1.4 0.018 (2.4%) 0.018 (2.4%) 12/18/2010 65 0.749 -1.6 -- *Denotes significance at 95% confidence level, LSC for AP Spine = 0.022 g/cm2, LSC for Total Hip = 0.027 g/cm2 # Denotes dissimilar scan types or analysis methods Impression: The patient has osteoporosis, based on the Total Spine T-score. No significant bone loss was observed. Discussion: INCREASED RISK OF FRACTURE. BONE DENSITY IS UNDESIRABLY LOW AT ONE OR MORE SKELETAL SITES, CONSISTENT WITH POSTMENOPAUSAL OSTEOPOROSIS. This patient's lowest T-score meets the World Health Organization's (WHO) criteria for osteoporosis at one or more sites (T-score -2.5 or below). In untreated patients, the risk of osteoporotic fracture increases approximately two-fold for each 1.0 SD decrease in T-score. Low bone density is not the only risk factor for fracture; also consider factors such as patient's age, frailty or poor health, risk of falling, risk of injury, previous osteoporotic fracture, family history of osteoporosis, cigarette smoking, low body weight, etc. Not everyone with low bone mineral density has osteoporosis; osteomalacia and other metabolic bone disorders should also be considered. Patients who have osteoporosis should be evaluated for specific diseases and conditions (secondary causes) that may cause or contribute to bone loss. The [place] Association [employer] Clinical Endocrinologists (AACE) and National Osteoporosis Foundation (NOF) recommend pharmacologic intervention for all postmenopausal women whose T-score is in this range. The patient should follow a healthful lifestyle (good nutrition with adequate calcium and vitamin D, and appropriate weight-bearing exercise). Follow-Up: Consider a repeat BMD and Vertebral Fracture Assessment (VFA) exam in 2 years or sooner if medically necessary, to reassess this patient's status. Reported by: EDNA GARZA M.D. on 08/26/2023 10:16:00 AM.
== END ==
PROVIDERS: PCP Family Medicine; Referring Provider Family Medicine; Visit Provider Family Medicine
DX: M81.0 Age-related osteoporosis without current pathological fracture (principal); E03.9 Hypothyroidism, unspecified
CPT/HCPCS: 77080

== ENCOUNTER → 2023-08-27 13:40 | Outpatient (CLI) | payer OTHER, SELFPAY ==
[2022-06-07 12:28] VITALS: BMI 22.8
--- NOTE | 2023-08-27 13:42 | DI.ECHO.S_ITS ---
[place] +---------+ [facility] +---------+ : : [address] : : : : [phone] : : : : Phone: [phone]---------+ Echocardiogram Report + + :Name: PROSPER SEE Study Date: 08/27/2023 Height: 58 in : :[facility] ReadingLocation: Weight: 128 lb : : Gender: Female BSA: 1.5 m2 : :: 1945 Age: 78 yrs BP: 130/80 mmHg: :Reason For Study: NONRHEUMATIC MITRAL VALVE INSUFFICIENCY : :Ordering Physician: SHANTI, : :CARO Performed By: Montrell Melara : :Referring: CARO MOSER : + + Interpretation Summary 1) Normal left ventricular thickness, size, wall motion, and systolic function (EF 60-65%). 2) Normal right ventricular size and function. 3) There is prolapse of the posterior mitral valve leaflet(s). 4) There is mild to moderate mitral regurgitation. 5) There is mild to moderate tricuspid regurgitation. 6) The right ventricular systolic pressure is estimated to be at least 63 mmHg based on an estimated right atrial pressure of 3 mm Hg. 7) Compared to the Echo done 09/18/2022, systolic PA pressure has increased from 43mmHg to 63mmHg on this study. Procedure: A two-dimensional transthoracic echocardiogram with color flow and Doppler was performed. The study quality was technically adequate. Comparison is made with the echocardiogram of 09/18/22. Left Ventricle: The left ventricle is normal in size and wall thickness. The ejection fraction is estimated to be 60-65%. Left ventricular systolic function appears normal without focal wall motion abnormalities. Right Ventricle: The right ventricle is normal size. The right ventricular systolic function is normal. Atria: The left atrium is moderately dilated. Right atrial size is normal. Mitral Valve: There is prolapse of the posterior mitral valve leaflet(s). There is mild to moderate mitral regurgitation. Aortic Valve: The aortic valve is trileaflet. There is no aortic valve stenosis. No aortic regurgitation is present. Tricuspid Valve: The tricuspid valve is normal in structure and function. There is no tricuspid stenosis. There is mild to moderate tricuspid regurgitation. The right ventricular systolic pressure is estimated to be at least 63 mmHg based on an estimated right atrial pressure of 3 mm Hg. Pulmonic Valve: The pulmonic valve is not well visualized. There is no pulmonic valvular stenosis. There is mild pulmonic regurgitation. Great Vessels: The aortic root is normal size. The dimensions of the ascending aorta are normal. The IVC is of normal diameter and collapses greater than 50% with a sniff. This suggests a low right atrial pressure of 3 mm Hg. Pericardium/ Pleura There is no pericardial effusion. There is no pleural effusion. MMode/2D Measurements & Calculations LVIDd: 4.9 cm LVOT diam: 1.8 cm LVIDs: 3.1 cm Ao root diam: 2.8 cm FS: 36.4 % asc Aorta Diam: 3.2 cm IVSd: 0.96 cm Ao Arch Diam (Prox Trans): 2.5 cm LVPWd: 0.87 cm LV saravia. diameter/BSA (cm/m^2): 3.3 LV sys. diameter/BSA (cm/m^2): 2.1 LA A2 area: 18.4 cm2 RA long axis: 4.5 cm LA A4 area: 19.8 cm2 RA area: 14.8 cm2 LA length (vol): 6.1 cm RA vol: 41.2 ml LA vol: 51.1 ml RA : 27.3 ml/m2 LA vol index: 33.9 ml/m2 IVC diam: 1.8 cm RVD1 (basal): 2.5 cm RVD2 (mid): 2.0 cm TAPSE: 2.2 cm Doppler Measurements & Calculations Ao V2 max: 176.5 cm/sec LVOT Max Jose: 131.0 cm/sec Ao V2 mean: 125.3 cm/sec LV V1 max P.9 mmHg Ao max P.5 mmHg LV V1 VTI: 37.3 cm Ao mean P.8 mmHg GLENNY(I,D): 2.0 cm2 Ao V2 VTI: 47.2 cm GLENNY(V,D): 1.9 cm2 sev ratio: 0.79 GLENNY indexed to BSA (cm^2/m^2): 1.3 MV E max jose: 56.1 cm/sec TR max jose: 389.6 cm/sec MV A max jose: 102.2 cm/sec TR max P.7 mmHg MV E/A: 0.55 PA V2 max: 102.2 cm/sec Med Peak E' Jose: 6.7 cm/sec PA V2 mean: 70.7 cm/sec E/E' med: 8.4 PA mean P.2 mmHg Lat Peak E' Jose: 7.6 cm/sec PA pr(Accel): 30.2 mmHg E/E' lat: 7.4 E/e' average: 7.9 MV dec time: 0.22 sec SV(LVOT): 94.5 ml Reading Physician:05:18 PM
== END ==
PROVIDERS: PCP Family Medicine; Referring Provider Family Medicine; Visit Provider Family Medicine
DX: I08.1 Rheumatic disorders of both mitral and tricuspid valves (principal)
CPT/HCPCS: 93306

== ENCOUNTER → 2023-11-24 12:04 | Outpatient (CLI) | payer OTHER, SELFPAY ==
[2022-06-07 12:28] VITALS: BMI 22.8
--- NOTE | 2023-11-24 12:07 | DI.RAD.S_ITS ---
PROCEDURE: XR CHEST 2V INDICATIONS: SHORT OF BREATH TECHNIQUE: 2 views of the chest were acquired. COMPARISON: None. FINDINGS: Surgical changes and devices: None. Lungs and pleura: Lungs are clear. No pleural effusions or pneumothorax. Mediastinum: Mediastinal contours are normal. Heart size is enlarged. Bones and chest wall: No suspicious bony abnormalities. Soft tissues appear unremarkable. IMPRESSION: No acute pulmonary process. Dictated by: Kaylah Rivas M.D. on 11/24/2023 at 20:49 Approved by: Kaylah Rivas M.D. on 11/24/2023 at 20:49
--- NOTE | 2023-11-24 12:07 | DI.RAD.S_ITS ---
PROCEDURE: XR HIP W PEL IF DONE RT 2V INDICATIONS: Pain in right hip TECHNIQUE: AP pelvis with lateral view(s) of the right hip(s). COMPARISON: CT, CT ABDOMEN PELVIS W CON, 06/07/2022, 8:57. FINDINGS: Bones: No fractures or dislocations. Pelvic ring appears intact. No suspicious bony lesions. Moderate bilateral degenerative hip joint space narrowing. Small periarticular osteophytes are present. No erosions. Degenerative changes are present within the lower lumbar spine. Soft tissues: The visualized bowel gas pattern is normal. No suspicious soft tissue calcifications. IMPRESSION: Relatively symmetric appearance moderate bilateral hip arthritic change. Dictated by: Kaylah Rivas M.D. on 11/24/2023 at 20:49 Approved by: Kaylah Rivas M.D. on 11/24/2023 at 20:49
== END ==
LOC: RAD 12:05
PROVIDERS: PCP Family Medicine; Referring Provider Family Medicine; Visit Provider Family Medicine
DX: M25.551 Pain in right hip (principal); I10 Essential (primary) hypertension; R00.1 Bradycardia, unspecified; R06.02 Shortness of breath
CPT/HCPCS: 71046; 73502

== ENCOUNTER → 2024-06-27 16:00 | Outpatient (CLI) | payer OTHER, SELFPAY ==
[2022-06-07 12:28] VITALS: BMI 22.8
--- NOTE | 2024-06-27 16:01 | DI.ECHO.S_ITS ---
[facility] : : [address] : : [place] : : [id number] : : Phone: [phone] Echocardiogram Report + + :Name: PROSPER SEE Study Date: 06/27/2024 Height: 59 in : :[facility] ReadingLocation: Weight: 130 lb : : Gender: Female BSA: 1.5 m2 : :: 1945 Age: 79 yrs BP: 133/79 mmHg: :Reason For Study: MURMUR : :Ordering Physician: CORINNA ARCHIBALD Performed By: Montrell Melara : :Referring: CORINNA ARCHIBALD : + + Interpretation Summary 1. The left ventricular contractility is normal. Estimate ejection fraction is greater than 60% with no segmental wall motion abnormalities. Borderline concentric LVH. Unable to comment on diastolic function due to frequent PVCs. 2. The right ventricular contractility is normal. 3. Mild left atrial enlargement. All other cardiac chambers are of normal size. 4. Mild tricuspid regurgitation with elevated pulmonary systolic artery pressures of 59 mmHg. 5. Mild posterior leaflet prolapse of the mitral valve with mild mitral regurgitation. 6. No obvious intracardiac shunts. 7. No obvious intracardiac masses nor thrombi. 8. No hemodynamically significant pericardial effusion. 9. Low right-sided filling pressures. Conclusion: Normal biventricular systolic function with mild tricuspid regurgitation and severe pulmonary hypertension. Mild mitral valve prolapse with mild regurgitation noted. When compared with previous echocardiogram, no significant changes have occurred in the degree of pulmonary hypertension. The degree of mitral regurgitation as well as tricuspid regurgitation has decreased. Procedure: A two-dimensional transthoracic echocardiogram with color flow and Doppler was performed. The study quality was technically good. Comparison is made with the echocardiogram of 08/27/2023. Left Ventricle: The left ventricle is normal in size. There is normal left ventricular wall thickness. There is no ventricular septal defect visualized. The ejection fraction is estimated to be 60-65%. There are no focal wall motion abnormalities. Right Ventricle: The right ventricle is normal in size and function. Atria: The left atrium is mildly dilated. Right atrial size is normal. There is no Doppler evidence for an interatrial shunt. Mitral Valve: There is prolapse of the posterior mitral valve leaflet(s). There is mild mitral regurgitation. Aortic Valve: The aortic valve is trileaflet. The aortic valve opens well. There is no hemodynamically significant valvular aortic stenosis. No aortic regurgitation is present. Tricuspid Valve: The tricuspid valve leaflets are thin and pliable. There is mild tricuspid regurgitation. The right ventricular systolic pressure is estimated to be at least 59 mmHg based on an estimated right atrial pressure of 3 mm Hg. Pulmonic Valve: The pulmonic valve leaflets are thin and pliable; valve motion is normal. There is trace pulmonic regurgitation. Great Vessels: The aortic root is normal size. The dimensions of the ascending aorta are normal. The pulmonary artery is normal size. The IVC is of normal diameter and collapses greater than 50% with a sniff. This suggests a low right atrial pressure of 3 mm Hg. Pericardium/ Pleura There is no pericardial effusion. There is no pleural effusion. MMode/2D Measurements & Calculations LVIDd: 4.8 cm LVOT diam: 1.8 cm LVIDs: 2.3 cm Ao root diam: 3.1 cm FS: 52.2 % asc Aorta Diam: 3.3 cm EPSS: 0.37 cm Ao Arch Diam (Prox Trans): 2.3 cm IVSd: 0.96 cm LVPWd: 0.86 cm LV saravia. diameter/BSA (cm/m^2): 3.1 LV sys. diameter/BSA (cm/m^2): 1.5 LA A2 area: 18.5 cm2 RA long axis: 4.3 cm LA A4 area: 19.4 cm2 RA area: 13.0 cm2 LA length (vol): 5.9 cm RA vol: 33.1 ml LA vol: 51.8 ml RA : 21.6 ml/m2 LA vol index: 33.7 ml/m2 IVC diam: 1.8 cm RVD1 (basal): 3.4 cm RVD2 (mid): 2.4 cm Doppler Measurements & Calculations Ao V2 max: 209.8 cm/sec LVOT Max Jose: 119.0 cm/sec Ao V2 mean: 146.5 cm/sec LV V1 max P.7 mmHg Ao max P.6 mmHg LV V1 VTI: 29.8 cm Ao mean P.8 mmHg GLENNY(I,D): 1.5 cm2 Ao V2 VTI: 49.3 cm GLENNY(V,D): 1.5 cm2 sev ratio: 0.60 GLENNY indexed to BSA (cm^2/m^2): 1.0 MV E max jose: 80.9 cm/sec TR max jose: 373.6 cm/sec MV A max jose: 138.0 cm/sec TR max P.8 mmHg MV E/A: 0.59 PA V2 max: 104.4 cm/sec Med Peak E' Jose: 6.2 cm/sec PA V2 mean: 67.7 cm/sec E/E' med: 13.1 PA mean P.1 mmHg Lat Peak E' Jose: 8.3 cm/sec PA pr(Accel): 32.8 mmHg E/E' lat: 9.8 E/e' average: 11.4 MV dec time: 0.21 sec SV(LVOT): 76.2 ml Reading Physician:
== END ==
PROVIDERS: Family Provider Family Medicine; PCP Family Medicine; Referring Provider Internal Medicine; Visit Provider Internal Medicine
DX: I08.1 Rheumatic disorders of both mitral and tricuspid valves (principal)
CPT/HCPCS: 93306

== ENCOUNTER → 2024-08-26 | Outpatient (CLI) | payer OTHER, SELFPAY ==
[2022-06-07 12:28] VITALS: BMI 22.8
--- NOTE | 2024-08-26 10:47 | DI.RAD.S_ITS ---
PROCEDURE: XR DEXA AXIAL SKELETON INDICATIONS: OSTEOPOROSIS,OSTEOPENIA COMPARISON: [facility], GET, XR DEXA AXIAL SKELETON, 08/26/2023, 10:06. FINDINGS: Lumbar Spine: Bone mineral density 0.647 (previously 0.673) g/cm2, T score -3.6 (previously -3.4). Left Femoral Neck: Bone mineral density 0.547 (previously 0.578) g/cm2, T score -2.7 (previously -2.4). Left Hip: Bone mineral density 0.691 (previously 0.693) g/cm2, T score -2.1 (previously -2.0). Fracture Risk Calculation (when applicable): 10-year fracture risk of a major osteoporotic fracture 19 percent and of a hip fracture 6.7 percent. (T score greater or equal to -1.0 to: NORMAL) (T score from -1.1 to -2.4: OSTEOPENIA) (T score less than or equal to -2.5: OSTEOPOROSIS) IMPRESSION: Osteoporosis--- recommend repeat DEXA in 2 years or less for reassessment of response to treatment. Follow-up guidelines as follows: Osteoporosis: Consider a repeat DEXA and Vertebral Fracture Assessment (VFA) exam in 2 years or sooner if medically necessary, to reassess this patient's status. Osteopenia: Consider a repeat DEXA in 2-3 years to reassess this patient's status, or if there is a new clinical indication. Normal: Consider a repeat DEXA in 5 years or sooner, or if there is a new clinical indication. All treatment decisions require clinical judgment and consideration of individual patient factors, including patient preferences, comorbidities, previous drug use, risk factors not captured in the FRAX model (e.g., frailty, falls, vitamin D deficiency, increased bone turnover, interval significant decline in bone density ) and possible under- or over-estimation of fracture risk by FRAX. In addition, the NOF Guide recommends that FDA-approved medical therapies be considered in postmenopausal women and men age >= 50 years with a: * Hip or vertebral (clinical or morphometric) fracture * T-score of <=-2.5 at the spine or hip * Ten-year fracture probability by FRAX of >= 3% for hip fracture or >=20% for major osteoporotic fracture. Dictated by: Chris Aviles M.D. on 08/26/2024 at 18:58 Approved by: Chris Aviles M.D. on 08/26/2024 at 19:02
== END ==
LOC: RAD 10:46
PROVIDERS: Family Provider Family Medicine; PCP Family Medicine; Referring Provider Family Medicine; Visit Provider Family Medicine
DX: M81.0 Age-related osteoporosis without current pathological fracture (principal)
CPT/HCPCS: 77080

== ENCOUNTER → 2025-04-11 13:44 | Outpatient (CLI) | payer OTHER, SELFPAY ==
[2022-06-07 12:28] VITALS: BMI 22.8
== END ==
LOC: ECHO 13:45
PROVIDERS: Family Provider Family Medicine; PCP Family Medicine; Referring Provider Internal Medicine; Visit Provider Internal Medicine
DX: I07.1 Rheumatic tricuspid insufficiency (principal); I27.20 Pulmonary hypertension, unspecified
CPT/HCPCS: 93306

== ENCOUNTER → 2025-04-21 15:43 | Outpatient (CLI) | payer OTHER, SELFPAY ==
[2022-06-07 12:28] VITALS: BMI 22.8
--- NOTE | 2025-04-21 15:44 | DI.MG.S_ITS ---
MM screening mammo BI: 04/21/2025. BI-RADS: 1 CLINICAL: 80-year old female for bilateral screening mammogram. Tyrer-Cuzick lifetime risk of 1.9%. No personal or first-degree family history of breast cancer. PRIOR EXAMS 05/26/2020, 08/03/2017, 07/14/2016. MAMMOGRAPHY TECHNIQUE: 2D and 3D (tomosynthesis) digital mammographic views obtained, with additional images as needed for full coverage. Current study was also evaluated with a Computer Aided Detection (CAD) system. DENSITY C. The breasts are heterogeneously dense, which may obscure small masses. MAMMOGRAPHY FINDINGS Bilateral: No suspicious mass, asymmetry, microcalcification, or other abnormality seen. IMPRESSION: * No evidence of malignancy. RECOMMENDATIONS Bilateral * Annual screening mammography. OVERALL ASSESSMENT CATEGORY BI-RADS-1: Negative. The [employer] recommends annual screening mammography beginning at age 40 for women with average risk of breast cancer. ELECTRONICALLY SIGNED: Clarisa Waggoner M.D. on 04/25/2025 at 10:06:38 PM PT Interpreting Station ID: [id number]
== END ==
LOC: MAMMO 15:44
PROVIDERS: Family Provider Family Medicine; PCP Family Medicine; Referring Provider Family Medicine; Visit Provider Family Medicine
DX: Z12.31 Encounter for screening mammogram for malignant neoplasm of breast (principal); R92.333 Mammographic heterogeneous density, bilateral breasts
CPT/HCPCS: 77063; 77067